=== PATIENT | female | born 1960 | race Caucasian/White ===

== ENCOUNTER 2019-04-28 10:33 | Emergency (ER) | payer MEDICARE, MEDICAID, SELFPAY ==
[2019-04-28 10:34] VITALS: BP 124/73; PULSE 65; RESP 18; TEMP 36.4; O2SAT 99; BMI 23.8
--- NOTE | 2019-04-28 10:41 | RAD_ITS ---
STUDY: X-RAY - RIGHT TIBIA AND FIBULA REASON FOR EXAM: Female, 58 years old. Right leg pain TECHNIQUE: 2 view(s) of the tibia and fibula were obtained. COMPARISON: None. FINDINGS: Normal visualized tibia. Normal visualized fibula. The soft tissue structures are unremarkable. RAD/Tibia & Fibula 2 Views IMPRESSION: Normal x-ray examination of the tibia and fibula. Electronically Signed: Brad Kyle DO at 11:19 EDT Tel , Service support ,
--- NOTE | 2019-04-28 10:49 | ED.DCSUM_ITS ---
- ER Visit Summary Date of Service: 04/28/19 Chief Complaint: Right moise injury History of Present Illness: The patient is a 58 F with history of developmental delay and seizure disorder presents to the emergency department after a right moise injury. Patient was at a workshop today. She was walking and slipped on a step. She struck her right moise against a stair. She fell to the ground. She did not strike her head. She denies loss of consciousness. She has still been able to bear weight, but had some swelling. She has not on anticoagulants. She denies any numbness or tingling in the foot. She is been compliant with all the medications. Physical Examination: Exam is relatively unremarkable. Patient does have a hematoma of the anterior distal aspect of the tibia. Her compartments are soft. Pulses are normal. She is neurologically intact in the foot. There is no gross laxity. There are no open areas. Test Results: [] Emergency Department Course and Treatment: Patient has no evidence of compart ment syndrome. X-rays were obtained. These show no evidence of acute fracture. Patient does have a contusion with small hematoma. She is placed in an [place] wrap. She will continue ice and elevation she will be discharged home. Treatment Plan: [] Disposition: Discharge Impression: 1. Right tibial hematoma This note was generated with [employer] dictation software. It may contain incorrect words, spelling, and punctuation that were not noted in review of the chart prior to signing ED Disposition - Plan for ED Patient: Instructions: ED Contusion Lower Ext Referrals: Mei Ruiz [Primary Care Provider] -
== END 2019-04-28 11:23 | disposition home or self-care (01) ==
LOC: ED 11:14
PROVIDERS: Emergency Provider Emergency Medicine
DX: S80.11XA Contusion of right lower leg, initial encounter (principal); G40.909 Epilepsy, unspecified, not intractable, without status epilepticus; R62.50 Unspecified lack of expected normal physiological development in childhood; Z79.899 Other long term (current) drug therapy; W22.09XA Striking against other stationary object, initial encounter; Y93.01 Activity, walking, marching and hiking; Y92.118 Other place in children's home and orphanage as the place of occurrence of the external cause; Y99.8 Other external cause status
CPT/HCPCS: 73590; 99282

== ENCOUNTER 2020-02-14 13:32 | Observation (INO) | payer MEDICARE, MEDICAID, SELFPAY ==
[2020-02-14 13:32] VITALS: BP 130/47; PULSE 85; RESP 14; TEMP 36.6; O2SAT 99; BMI 22.8
--- NOTE | 2020-02-14 14:11 | ED.VISSUMM ---
- ER Visit Summary Date of Service: 02/14/20 Chief Complaint: Leg weakness and fall History of Present Illness: The patient is a 59 F who presents with bilateral leg weakness that is been getting worse over the past couple days. Patient states she fell yesterday trying to get up off of the toilet. Patient states she has pain in both of her thighs. Patient admits to some weakness. Patient describes her pain as throbbing. Patient states nothing makes it better or worse. Patient denies any numbness or tingling. Patient denies any head injury or loss of consciousness. Patient denies any headaches. Physical Examination: Vital signs are stable. Patient is afebrile. Patient is in no acute distress. Oral mucosa is pink and moist. Neck is supple. Trachea is midline. There is no JVD. Heart was regular rate and rhythm. Lungs are clear and equal bilaterally. Abdomen is soft. Bowel sounds are normal. There is no tenderness. Cranial nerves II through XII are intact. Strength is 5/5 bilateral in the upper and lower extremities. There are no sensory deficits noted. Extremities are intact. There is no calf tenderness or edema. There is some mild tenderness over the thighs bilaterally. There is no edema noted. There is no erythema or ecchymosis. There are no deformities noted. Test Results: CBC and comprehensive metabolic profile were essentially within normal limits. Urinalysis does not show any evidence of urinary tract infection. PA and lateral chest x-ray was obtained. There is no acute cardiopulmonary process. Pelvic x-rays were obtained. There is no acute fracture. These were interpreted by the radiologist and myself. Emergency Department Course and Treatment: Patient was given IV fluids here. Patient was feeling better on reevaluation. Patient will be ambulated. Patient was unsteady with ambulating without her walker. This improved somewhat when she ambulated with a walker. Patient would prefer to go to a fdc. Patient would benefit from PT and OT to evaluate and treat. Patient was unable to be transferred directly to a fdc. Case was discussed with the hospitalist and the patient will be admitted for observation. Patient understood and was agreeable with the plan. All questions were answered. Disposition: Admit for observation Impression: 1. Lower extremity weakness 2. Frequent falls This note was generated with [employer] software. It may contain incorrect words, spelling, and punctuation that were not noted in review of the chart prior to signing ED Disposition - Plan for ED Patient: Disposition: Acute Care Hospital [facility] Diagnosis: Lower extremity weakness, Frequent falls Instructions: WEAKNESS, Unk Cause Referrals: Toby Young DO [Primary Care Provider] - 3-5 Days
[2020-02-14 14:24] LABS: Absolute Lymphocyte Count 1.02 X10^3/uL (0.83-4.51); Absolute Neutrophil Count 3.2 X10^3/uL (2.0-7.7); Basophil# 0.02 X10^3/uL; Basophil% 0.4 % (0-1); Eosinophil# 0.04 X10^3/uL; Eosinophils% 0.8 % (0-5); Hematocrit 39.6 % (37-47); Hemoglobin 12.6 g/dL (12.0-15.0); Lymphocyte # 1.02 X10^3/ul (4.0); Lymphocyte % 20.5 % (19-41); Mean Corp Hgb Conc 31.8 g/dL (32-36); Mean Corpuscular Hgb 30.9 pg (27.0-32.0); Mean Corpuscular Volume 97.1 fL (81-99); Mean Platelet Vol. 9.7 fl (6.2-12.0); Monocyte# 0.67 X10^3/uL; Monocyte% 13.5 % (0-10); NRBC Flagged by Analyzer 0 % (0-5); Neutrophil % 64.2 % (47-70); Platelet Count 130 K/mm3 (150-450); RBC Distribution Width CV 13.7 % (11.6-14.6); RBC Distribution Width SD 49.1 fl (35.1-43.9); Red Blood Count 4.08 M/mm3 (4.2-5.4)
[2020-02-14] MEDS: 0.9% Normal Saline 1,000 ML 1000 ML IV (14:31)
[2020-02-14 14:32] LABS: Bacteria 0 SEEN /hpf (None Seen); Mucous, Urine 0 SEEN /hpf (<or=2+); Red Blood Cells-Urine 0 SEEN /hpf (0-5)
[2020-02-14 14:34] LABS: Color, Urine Yellow (Yellow); Glucose, Dipstick Normal (Normal); Ketone-Dipstick 15 mg/dl (Negative); Leukocyte Esterase-Dipstick 25 /ul (Negative); Nitrite-Dipstick Negative (Negative); Occult Blood-Urine Negative /ul (Negative); Protein-Dipstick 30 mg/dl (Negative); Urine Clarity Clear (Clear); Urine Urobilinogen 1 mg/dl (Normal)
--- NOTE | 2020-02-14 14:36 | RAD_ITS ---
STUDY: X-RAY CHEST REASON FOR EXAM: Female, 59 years old. Weakness TECHNIQUE: PA and lateral views of the chest. COMPARISON: None. FINDINGS: Hyperinflation. Scattered calcified granulomas. There is no demonstrated pleural abnormality. Normal size heart. Normal mediastinum and jesús. Normal visualized pulmonary arteries. Normal visualized aortic arch and descending thoracic aorta. There is a mild dextroscoliosis of the thoracic spine with a levoscoliosis of the lumbar spine. Normal visualized ribs, clavicles, and shoulders. There is no demonstrated abnormality of the visualized soft tissue structures of the upper abdomen. RAD/Chest PA and Lateral IMPRESSION: Hyperinflation. The lungs are clear. Electronically Signed: Kirill Hager, at 14:51 EDT , Service support ,
--- NOTE | 2020-02-14 14:36 | RAD_ITS ---
STUDY: X-RAY - PELVIS REASON FOR EXAM: Female, 59 years old. Bilateral leg pain TECHNIQUE: One view of the pelvis was obtained. COMPARISON: None. FINDINGS: There is a non-specific bowel gas pattern. Normal visualized soft tissue structures. Normal bilateral iliac wings, sacroiliac joints and visualized sacrum. Normal visualized bilateral superior and inferior pubic rami. Normal pubic symphysis. Normal ischial tuberosities. Normal visualized right femoral head. Normal right acetabulum. Normal right hip joint. Normal visualized left femoral head. Normal left acetabulum. Normal left hip joint. RAD/Pelvis 1 or 2 Views IMPRESSION: Normal x-ray examination of the pelvis. Electronically Signed: Kirill Hager, at 14:50 EDT , Service support ,
[2020-02-14 14:45] LABS: ALB/GLOB Ratio 0.9 RATIO (0.9-2.4); AST(SGOT) 16 U/L (15-37); Alanine Aminotransfer ALT/SGPT 21 U/L (13-56); Albumin, Serum 3.1 g/dL (3.2-5.0); Alkaline Phosphatase 71 U/L (45-117); Anion Gap 6 (5-15); BUN 28 mg/dL (7-18); BUN/Creat Ratio 37.7 RATIO (10-20); Calcium,Total 8.4 mg/dL (8.5-10.1); Chloride 108 mmol/L (98-107); Creatinine, Serum 0.74 mg/dL (0.55-1.02); EST Glomerular Filtration Rate 85 mL/min (>60); Est Glom Filt Rate - Afr Amer 103 mL/min (>60); Estimated Creatinine Clearance 65.54 ml/min; Globulin 3.4 g/dL (2.2-4.2); Glucose 117 mg/dL (74-106); Potassium 3.4 mmol/L (3.5-5.1); Protein, Total 6.5 g/dL (6.4-8.2); Sodium Level 145 mmol/L (136-145)
[2020-02-14 14:46] LABS: Urine Bilirubin Dipstick 1 mg/dL (Negative); White Blood Cells 0-5 SEEN /hpf (0-5)
[2020-02-14 14:47] LABS: Hyaline Cast 0-5 SEEN /lpf (0-5); Squamous Epithelial Cells - UA 0-5 SEEN /hpf (5-10)
--- NOTE | 2020-02-14 15:08 | CM.ED ---
Social Work Consult: Discharge Planning Informant: Dr. Victoria Met with patient and patient [id number], Shantel in room. Patient currently lives with brother, Romeo and Shantel along with other family. Patient attends [employer] during the day on week days. Shantel stating to be able to care for patient as patient has been weak lately and is comfortable taking patient home. Shantel stating no concerns with patient returning to home and Shantel provides 24hr care for patient. Patient does not use any DME. Updated Dr. Victoria on above information. Anjelica Christian MSW, DOMINIQUE
--- NOTE | 2020-02-14 15:58 | CM.ED ---
Social Work Updated by nursing staff that patient is presenting with a significant amount of weakness and current recommendation, if Shantel plans for patient to return to home would be for patient to use a walker and have someone walking with patient at all times. Nursing staff reporting to have spoke with Shantel about this and plan is for patient to discharge to home with outpatient physical therapy. Met with patient and Shantel in room. This aids social worker inquiring as to where patient would like to go for physical therapy. Shantel now expressing concern with patient returning to home as I am not sure I can care for her per Shantel. Shantel and patient now asking about senior living placement with [facility] being first choice. This aids social worker educating patient and Shantel that this aids social worker is able to look into this option but no guarantee that patient will be accepted. Telephone call to [facility]. There are open beds and they are able to review clinicals. [facility] confirming to be willing to accept patient from the ER, as patient is not meeting criteria for medical admission but is meeting physical criteria for strengthening/therapy as patient prior level was independent per medical team. Clinical information faxed. Pending approval. Anjelica IVEY, DOMINIQUE
--- NOTE | 2020-02-14 16:20 | CM.ED ---
Addendum entered by Kelly Christian 02/14/20 20:00: Genet Farrar ([phone]) is patient caseworker protective services through board of . This bilingual social worker did attempt to contact Genet but Genet had already left for the day. Original Note: Social Work Patient with diagnosis of MR and receives services through the board of DD. Patient will trigger PASRR. Telephone call to Board of DD, Sara. Sara to have Felipa ([phone]) to call this bilingual social worker to see if patient would qualify for a categorical exemption. Anjelica IVEY, DOMINIQUE
[2020-02-14 16:41] VITALS: BP 124/57; PULSE 79; RESP 16; O2SAT 96
--- NOTE | 2020-02-14 16:50 | CM.ED ---
Social Work Telephone call from [facility]. They are able to accept patient under patient Medicaid which would require a PASRR that will be triggered for further assessment from the Department of Developmental Disabilities (CARL). Per Amber once the PASRR has been submitted it can take up to 24hrs for the CARL to look at the form. Amber recommending for the PASRR to be completed under emergency classification but the case will mostly still not be looked at until tomorrow. Collaborating with Dr. Perea. Plan is for patient to be brought into the hospital under observation as patient family is reporting to be unable to care for patient in the home. Anjelica Christian MSW, DOMINIQUE
--- NOTE | 2020-02-14 17:29 | NURSING ---
Kath PHILLIPS LOWER EXTREMITY WEAKNESS, FREQUENT FALLS OBS
[2020-02-14 17:31] VITALS: BP 122/59; PULSE 81; RESP 16; TEMP 36.2; O2SAT 97
--- NOTE | 2020-02-14 17:34 | PCM.HP.STD ---
History of Present Illness Date of Admission: 02/14/20 Chief Complaint: lower extremity weakness The patient is a 59 year old F who was in her normal state of health but over the past couple days is just been weak in her legs. Today which is weaker than normal and was sent to the emergency room. In the emergency room, patient underwent a work-up that was unremarkable. Try to get her up and patient was just too weak to do so. Decision was made to have patient go to a residential facility. They try to expedite that from the ER but were unable to do so with the patient being brought in under observation status to facilitate that process. Patient was accepted by [facility] but will need to have insurance approval before she can go. Patient denies any other complaints. Does have some chronic rhinitis but no change with that. She denies any travel nor any sick contacts that she is aware of. [] Past Medical History Medical History: Medical History (Last Updated 02/14/20 @ 17:[address] Jl Matos DO) Seizure disorder G40.909 Allergies No Known Allergies Allergy (Verified 02/14/20 13:35) Home Medications: Ambulatory Orders Medication Instructions Recorded Carbamazepine [Tegretol] 200 mg PO 5X/DAY 04/28/19 Clonazepam 1 mg PO QHS 04/28/19 Divalproex Sodium [Depakote] 1,000 mg PO BID 04/28/19 Levetiracetam [Keppra] 1,000 mg PO BID 04/28/19 Lives: Alone Smoking Status: Never smoker - *Family History Maternal History Items: - - no heart disease Review of Systems Comment: All review of systems were negative except as mentioned above in the history of present illness and the other review of systems. VTE Information - Inpt Only VTE Present on Admission: No VTE Mechan Device Prophylaxis: None VTE Pharm Prophylaxis ordered?: No Reason prophylaxis not ordered:: Treatment Not Indicated Patient Problems: Active and Suspected Problems (Last Updated 02/14/20 @ 17:[address] Jl Matos DO) Lower extremity weakness (Acute) Frequent falls (Acute) - Physical Exam Vitals/I&O's: Vital Signs Temp Pulse Resp BP Pulse Ox 36.2 C L 81 16 122/59 H 97 02/14/20 17:31 02/14/20 17:31 02/14/20 17:31 02/14/20 17:31 02/14/20 17:31 Oxygen Delivery Method Room Air Weight: 56.699 kg Body Mass Index (BMI) 22.8 Intake and Output for Last 24 Hours 02/12/20 02/13/20 02/14/20 23:59 23:59 23:59 Intake Total 1000 / 1000 Balance 1000 / 1000 General: Alert, No apparent distress HEENT: Atraumatic, Normocephalic Oral: Moist Mucosa, No Gingival or Mucosal Lesions/ Ulcerations Neck: No Nodes, Trachea Midline Lungs: Clear to auscultation, Normal air movement, No rhonchi, No wheeze Cardiovascular: Regular rate, Regular Rhythm, Normal S1, Normal S2, No murmurs Abdomen: Bowel Sounds Present, Soft, Non Tender, Non-Distended, No Hepato-splenomegaly Extremities: No edema, No Calf Tenderness Skin: No rashes, No breakdown Musculoskeletal: No Tenderness to Palpation of Joints or Extremities, No Muscle Wasting Psych/Mental Status: Normal Affect, Appropriate Laboratory Results 02/14/20 14:15: WBC 5.0, RBC 4.08 L, Hgb 12.6, Hct 39.6, MCV 97.1, MCH 30.9, MCHC 31.8 L, RDW Std Deviation 49.1 H, RDW Coeff of [place]ador 13.7, Plt Count 130 L, MPV 9.7, Immature Gran % (Auto) 0.600, Neut % (Auto) 64.2, Lymph % (Auto) 20.5, [place] % (Auto) 13.5 H, Eos % (Auto) 0.8, Baso % (Auto) 0.4, Absolute Neuts (auto) 3.2, Absolute Lymphs (auto) 1.02, Nucleated RBC % 0 02/14/20 14:15: Sodium 145, Potassium 3.4 L, Chloride 108 H, Carbon Dioxide 31.0, Anion Gap 6, BUN 28 H, Creatinine 0.74, Estim Creat Clear Calc 65.54, Est GFR (MDRD) Af Amer 103, Est GFR (MDRD) Non-Af 85, BUN/Creatinine Ratio 37.7 H, Glucose 117 H, Calcium 8.4 L, Total Bilirubin 0.20, AST 16, ALT 21, Alkaline Phosphatase 71, Total Protein 6.5, Albumin 3.1 L, Globulin 3.4, Albumin/Globulin Ratio 0.9 02/14/20 14:25: Urine Color Yellow, Urine Clarity Clear, Urine pH 5.0, Ur Specific [place] 1.020, Urine Protein 30 H, Urine Glucose (UA) Normal, Urine Ketones 15 H, Urine Occult Blood Negative, Urine Nitrite Negative, Urine Bilirubin 1 H, Urine Urobilinogen 1 H, Ur Leukocyte Esterase 25 H, Urine RBC 0 SEEN, Urine WBC 0-5 SEEN, Ur Squamous Epith Cells 0-5 SEEN, Urine Bacteria 0 SEEN, Hyaline Casts 0-5 SEEN, Urine Mucus 0 SEEN Assessment/Plan All Active Problems (Last Updated 02/14/20 @ 17:[address] Jl Matos, DO) Lower extremity weakness (Acute) Frequent falls (Acute) 1. debility: no clear etiology. plan for PT OT. casemgmt to assist with disposition. has already been accepted by [facility]. 2. Seizure disorder: Patient states that her last seizure was a few days ago but states that she gets them very infrequently. Continue with her home medications. 3. VTE prophylaxis: Low risk as patient is observation status and not indicated. 4. Advanced care planning. Patient is unsure. Therefore she will be full CODE STATUS at this time. OBSV E&M: 39225 Initial observation care L2
--- NOTE | 2020-02-14 17:50 | CM.ED ---
Social Work Telephone call from Felipa at the [facility] Board of DD. Felipa stating that the board CARL is only open during business hours and will not be reviewing patient triggered PASRR screen until tomorrow at the earliest. Felipa updated on patient and plan. Felipa voicing understanding and advising this community mental health social worker to initiate the PASRR at this time. PASRR completed and pending review from CARL in [place]. Social Work to continue to follow. Anjelica IVEY, DOMINIQUE
[2020-02-14 17:51] VITALS: BMI 23.6
[2020-02-14 18:01] VITALS: BP 128/60; PULSE 70; RESP 12; TEMP 36.6; O2SAT 98
[2020-02-14 18:14] VITALS: PULSE 80
[2020-02-14] MEDS: carBAMazepine 200 MG Tablet PO ×2 (18:44→21:19)
[2020-02-14 19:45] VITALS: BP 113/57; PULSE 78; RESP 16; TEMP 36.4; O2SAT 95
[2020-02-14] MEDS: clonazePAM 1 MG Tablet PO (21:19)
[2020-02-14] MEDS: levETIRAcetam 1,000 MG Tablet 1000 MG PO (21:19)
[2020-02-14] MEDS: Divalproex Sodium 250 MG Tablet 1000 MG PO (21:20)
[2020-02-15 02:16] VITALS: BP 113/58; PULSE 94; RESP 14; TEMP 36.9; O2SAT 95
[2020-02-15] MEDS: carBAMazepine 200 MG Tablet PO ×4 (05:19→17:45)
[2020-02-15] MEDS: Acetaminophen 325 MG Tablet 650 MG PO (07:28)
[2020-02-15] MEDS: levETIRAcetam 1,000 MG Tablet 1000 MG PO (09:33)
[2020-02-15] MEDS: Divalproex Sodium 250 MG Tablet 1000 MG PO (09:33)
--- NOTE | 2020-02-15 10:57 | CASEMGMT ---
Addendum entered by Willa Curry 02/15/20 16:06: SHANNAN placed a call to [facility] and spoke with Marisol. Marisol states she has received LOC for pt and will be reviewing LOC today and will likely have results for this worker today. Marisol asked for this worker's email address so she can mail the results. Email provided to Marisol. SHANNAN updated physician that this worker is still waiting for LOC results but is likely results will be received today. Plan: [facility] pending LOC Addendum entered by Willa Curry 02/15/20 11:48: SHANNAN spoke with Tara at [facility] and updated her that Board of DD has approved pt for 14 days. Tara states she will need LOC under medicaid. SHANNAN placed a call to Anjelica FOX, who states she hasn't submitted LOC yet so LOC will need to be submitted. SHANNAN completed LOC and faxed to [facility]. SHANNAN updated pt on approval for [facility] and likely discharge today. Original Note: Social Work Note SW received message from Genet Farrar at Board of DD stating pt has been approved by Board of DD to admission to SNF for 14 days. SHANNAN requested results be faxed to this worker, fax number provided. Genet states she would like updates sent to Board of DD and provided fax number [phone]. Genet also provided direct number [phone]. Willa Curry ICE CREAM MACHINE OPERATOR, COMMUNICATIONS SCIENTIST
[2020-02-15 10:58] VITALS: BP 103/51; PULSE 85; RESP 18; TEMP 36.9; O2SAT 94
--- NOTE | 2020-02-15 11:35 | PCM.TXEXTCAR ---
- Diet 02/14/20 18:05 Diet: Regular Diet Food consistency:: Regular Liquid Consistency:: Regular/Thin - Therapies Physical Therapy: Eval and Treat Occupational Therapy: Eval and Treat - Allergies/Procedures Done in Hospital Allergies/Adverse Reactions: Allergies No Known Allergies Allergy (Verified 02/14/20 13:35) Procedures: None - Type of Care/Length of Stay Estimated LOS: Convalescent Care Less Than 30 days Type of Care Needed: Skilled Rehab Potential: Good Prognosis: Good - Additional Orders/Day of Discharge Day of Discharge: 02/15/20 - Follow Up Care Please follow up with your Primary Care Physician in: 3-5 days
--- NOTE | 2020-02-15 12:49 | PCM.DC.SUM ---
Discharge Date and Diagnosis - Problem List Patient Problems: Active and Suspected Problems (Last Updated 02/14/20 @ 17:[address] Jl Matos DO) Lower extremity weakness (Acute) Frequent falls (Acute) Date of Admission: 02/14/20 Date of Discharge: 02/15/20 - Primary Discharge Diagnosis Active and Suspected Problems (Last Updated 02/14/20 @ 17:[address] Jl Matos DO) Lower extremity weakness (Acute) Frequent falls (Acute) Hospital Course and Treatment Imaging Results: CXR:IMPRESSION: Hyperinflation. The lungs are clear. XR Pelvis: IMPRESSION: Normal x-ray examination of the pelvis. Consults: None Operations: None Procedures: None Summary of Care Provided: Per HPI: The patient is a 59 year old F who was in her normal state of health but over the past couple days is just been weak in her legs. Today which is weaker than normal and was sent to the emergency room. In the emergency room, patient underwent a work-up that was unremarkable. Try to get her up and patient was just too weak to do so. Decision was made to have patient go to a custodial facility. They try to expedite that from the ER but were unable to do so with the patient being brought in under observation status to facilitate that process. Patient was accepted by [facility] but will need to have insurance approval before she can go. Patient denies any other complaints. Does have some chronic rhinitis but no change with that. She denies any travel nor any sick contacts that she is aware of Hospital Course: 1. Debility and weakness with an inability to complete [id number] female with a seizure disorder presents to the hospital because of weakness in her lower extremities. Work-up in the ER was unremarkable. There were attempts made in the ER to get her to a custodial facility however because she of her seizure disorder and intellectual disability, she needed to be cleared by the board of for transfer to a custodial facility. She will be transferred today to [facility] for therapy with the end goal of discharging back to home. 2. Her other medical diagnoses were evaluated and her home medications were continued where appropriate Patient Problems: Active and Suspected Problems (Last Updated 02/14/20 @ 17:[address] Jl Matos DO) Lower extremity weakness (Acute) Frequent falls (Acute) - Physical Exam Vitals/I&O's: Vital Signs Temp Pulse Resp BP Pulse Ox 98.5 F 85 18 103/51 L 94 02/15/20 10:58 02/15/20 10:58 02/15/20 10:58 02/15/20 10:58 02/15/20 10:58 Oxygen Delivery Method Room Air Weight: 129 lb 3.054 oz Body Mass Index (BMI) 23.6 Intake and Output for Last 24 Hours 02/13/20 02/14/20 02/15/20 23:59 23:59 23:59 Intake Total 1000 / 1000 500 / 500 Balance 1000 / 1000 500 / 500 General: Alert, Cooperative, No apparent distress HEENT: Atraumatic, PERRLA, EOMI, Normocephalic Oral: Moist Mucosa Neck: Supple, No JVD Lungs: Clear to auscultation, Normal air movement, No rhonchi, No wheeze, No rales Cardiovascular: Regular rate, Regular Rhythm, Normal S1, Normal S2, No murmurs Abdomen: Soft, Non Tender, Non-Distended, No Hepato-splenomegaly Extremities: No edema, Capillary Refill Less than 3 Seconds Skin: No rashes, No breakdown Neurological: Neuro grossly intact, Sensory exam intact to light touch and pain Psych/Mental Status: Normal Affect, Appropriate Laboratory Results 02/14/20 14:15: WBC 5.0, RBC 4.08 L, Hgb 12.6, Hct 39.6, MCV 97.1, MCH 30.9, MCHC 31.8 L, RDW Std Deviation 49.1 H, RDW Coeff of [place]ador 13.7, Plt Count 130 L, MPV 9.7, Immature Gran % (Auto) 0.600, Neut % (Auto) 64.2, Lymph % (Auto) 20.5, [place] % (Auto) 13.5 H, Eos % (Auto) 0.8, Baso % (Auto) 0.4, Absolute Neuts (auto) 3.2, Absolute Lymphs (auto) 1.02, Nucleated RBC % 0 02/14/20 14:15: Sodium 145, Potassium 3.4 L, Chloride 108 H, Carbon Dioxide 31.0, Anion Gap 6, BUN 28 H, Creatinine 0.74, Estim Creat Clear Calc 65.54, Est GFR (MDRD) Af Amer 103, Est GFR (MDRD) Non-Af 85, BUN/Creatinine Ratio 37.7 H, Glucose 117 H, Calcium 8.4 L, Total Bilirubin 0.20, AST 16, ALT 21, Alkaline Phosphatase 71, Total Protein 6.5, Albumin 3.1 L, Globulin 3.4, Albumin/Globulin Ratio 0.9 02/14/20 14:25: Urine Color Yellow, Urine Clarity Clear, Urine pH 5.0, Ur Specific [place] 1.020, Urine Protein 30 H, Urine Glucose (UA) Normal, Urine Ketones 15 H, Urine Occult Blood Negative, Urine Nitrite Negative, Urine Bilirubin 1 H, Urine Urobilinogen 1 H, Ur Leukocyte Esterase 25 H, Urine RBC 0 SEEN, Urine WBC 0-5 SEEN, Ur Squamous Epith Cells 0-5 SEEN, Urine Bacteria 0 SEEN, Hyaline Casts 0-5 SEEN, Urine Mucus 0 SEEN Current Medications Acetaminophen (Tylenol) 650 mg PO Q6H PRN PRN PRN Reason: Pain Score 1-10/Temp > 100.7 F Last Admin: 02/15/20 07:28 Dose: 650 mg Documented by: Carbamazepine (Tegretol) 200 mg PO 5X/DAY [facility] Last Admin: 02/15/20 09:33 Dose: 200 mg Documented by: Clonazepam (Klonopin) 1 mg PO QHS [facility] Last Admin: 02/14/20 21:19 Dose: 1 mg Documented by: Divalproex Sodium (Depakote) 1,000 mg PO BID [facility] Last Admin: 02/15/20 09:33 Dose: 1,000 mg Documented by: Glucagon () 1 mg IM .X1 PRN PRN Reason: Hypoglycemia Dextrose (Dextrose 10%-Water) 250 mls @ 999 mls/hr IV .Q16M PRN; Protocol PRN Reason: HYPOGLYCEMIA Levetiracetam (Keppra Tablet) 1,000 mg PO BID [facility] Last Admin: 02/15/20 09:33 Dose: 1,000 mg Documented by: Sodium Chloride () 10 - 40 ml IV UD PRN PRN Reason: SALINE FLUSH Home Medications: Medications to take at Discharge Carbamazepine [Tegretol] 200 mg PO 5X/DAY 04/28/19 Clonazepam 1 mg PO QHS 04/28/19 Divalproex Sodium [Depakote] 1,000 mg PO BID 04/28/19 Levetiracetam [Keppra] 1,000 mg PO BID 04/28/19 Please follow up with your Primary Care Physician in: 3-5 days Patient Instructions: WEAKNESS, Unk Cause Disposition: Nursing Home facility Minutes spent on discharge:: 35 Patient Condition:: Stable Medical Necessity - Tobacco Use Smoking Status: Never smoker Tobacco Use: Non-smoker Meaningful Use Info Meaningful Use Diagnoses (Choose all that apply): None applicable OBSV E&M: 59306 Observation care discharge
[2020-02-15 14:06] VITALS: BP 100/51; PULSE 85; RESP 18; TEMP 37.2; O2SAT 93
--- NOTE | 2020-02-15 16:33 | CASEMGMT ---
Social Work Note SHANNAN received LOC results from [facility]. SHANNAN faxed LOC results, Board of DD results, transfer to extended care facility, signed medication list and any scripts to [facility]. SHANNAN placed original in SNF folder and copy on pt's chart. SHANNAN placed a call to Lisa at [facility] and updated her that pt will be admitted to [facility]. SHANNAN asked Lisa if transportation is still available for pt and Lisa states their transport is done around 3:00pm. SHANNAN placed a call to pt's caregiver Shantel and updated Shantel that pt will be discharged to [facility] today. SHANNAN asked Shantel about transport. Shantel states she is sick and was told to not be around pt at this time so she will not be able to transport pt and was informed that the hospital could arrange transport. SHANNAN updated Shantel that pt could transport via wheelchair van but those are done for the day. SHANNAN informed Shantel that the other option is cot transport but pt doesn't have a medical reason she needs cot so pt will be financially responsible for bill for cot transport. Shantel states pt's brother Tommy is working until 8:00pm but may be able to transport pt once he gets off work. Shantel states she will call Tommy then give this worker a call back. SHANNAN received call from Shantel stating pt's brother Tommy is working until 8:00pm and then will be at [facility] to transport pt to [facility]. SHANNAN updated RN. SHANNAN placed a call to Lisa at [facility] and updated her on transport time. Plan: Discharge to [facility] under medicaid with pt's family transporting pt around 8:00pm [facility]. Willa Curry MANAGEMENT TECH, FAMILY NURSE
--- NOTE | 2020-02-15 18:19 | NURSING ---
Report called to [facility].
[2020-02-15 20:30] VITALS: BP 111/59; PULSE 79; RESP 16; TEMP 37.4; O2SAT 94
--- NOTE | 2020-02-15 20:33 | NURSING ---
Talked to Shantel Maher who is Doni's . Doni is the pt's brother that is to be picking her up and transporting her to [facility]. Mrs. Maher indicated that her did not get off work until around 1999 and would be here to pear picker pt around 2099.
== END 2020-02-15 21:30 | disposition skilled nursing facility (03) ==
LOC: ED 17:22 → MS3 17:38
PROVIDERS: Emergency Provider Emergency Medicine; Visit Provider Family Medicine
DX: R53.1 Weakness (principal); Z79.899 Other long term (current) drug therapy; R29.6 Repeated falls; G40.909 Epilepsy, unspecified, not intractable, without status epilepticus; Q85.00 Neurofibromatosis, unspecified
CPT/HCPCS: 71046; 72170; 80053; 81001; 85025; 96360; 97162; 97166; 99218; 99285; J7030; A4216; G0378

== ENCOUNTER 2021-09-24 12:46 | Emergency (ER) | payer MEDICARE, MEDICAID, SELFPAY ==
[2021-09-24 12:47] VITALS: BP 142/104; PULSE 78; RESP 18; TEMP 35.8; O2SAT 100; BMI 22.4
[2021-09-24 12:48] VITALS: BP 142/104; PULSE 78; RESP 18; TEMP 35.8; O2SAT 100
--- NOTE | 2021-09-24 12:59 | RAD_ITS ---
STUDY: X-RAY CHEST REASON FOR EXAM: Female, 61 years old. Cough TECHNIQUE: Single AP portable view of the chest. COMPARISON: Comparison is made with prior study 02/14/2020 FINDINGS: Hyperinflation. The lungs are clear. There is no demonstrated pleural abnormality. Normal size heart. Normal mediastinum and jesús. Normal visualized pulmonary arteries. Normal visualized aortic arch and descending thoracic aorta. Normal visualized thoracic spine. There is degenerative osteoarthritis of the bilateral shoulders. There is no demonstrated abnormality of the visualized soft tissue structures of the upper abdomen. RAD/Chest 1 View (Portable) IMPRESSION: Hyperinflation. The lungs are clear. Electronically Signed: Kirill Hager MD at 13:41 EDT , Service support ,
--- NOTE | 2021-09-24 13:00 | EDS_ITS ---
HPI HPI - URI History of Present Illness Chief Complaint: Cough Detail of Chief Complaint: Cough and fatigue that started today Informant: patient Narrative Narrative: Patient presents to the emergency department with caregiver. Patient goes to the [facility] workshop where she was noted to be coughing and caregiver was asked to pick her up and recommended that she get a Covid test. Patient states the cough is nonproductive. Patient has been vaccinated against Covid and has had her flu shot as well. She denies any fevers or chills or sweats. She denies shortness of breath. She denies body aches. She has not lost taste or smell. Prior similar symptoms: Yes ROS ROS ED ROS Narrative Fatigue Constitutional Constitutional ED: Reports systems reviewed and no addt'l complaints, except as documented; Denies body ache(s), change in weight or chills Eyes Eyes: Denies acute decrease in peripheral vision, change in vision, double vision or loss of vision ENT ENT ED: Reports none; Denies ear pain, lip swelling, loss taste/smell, neck pain, otalgia or sore throat Cardiovascular Cardiovascular: Reports none; Denies abdominal pain, chest pain with activity, leg edema, lightheadedness, palpitations, rapid heart rate or syncope Respiratory/Chest Respiratory/Chest: Reports none and cough; Denies change in mental status, dry cough, dyspnea, hemoptysis, shortness of breath at rest or shortness of breath with exertion Gastrointestinal Gastrointestinal: Reports none; Denies abdominal pain, change in stool hollie acter, diarrhea, hematemesis, hematochezia, melena, rectal bleeding or vomiting Genitourinary Genitourinary ED: Reports none; Denies abdominal discomfort, anuria, dysuria, genital pain or polyuria Musculoskeletal Musculoskeletal: Reports none; Denies arthralgias, back pain, difficulty walking, extremity pain, muscle weakness or myalgias Integumentary Reports none; Denies abscess or rash Neurologic Neurologic: Reports none; Denies abnormal gait, confusion, focal weakness, frequent falls, headache(s), loss of vision, numbness, paresthesias, radicular pain, vertigo or weakness Psychiatric Psychiatric: Reports systems reviewed and no addt'l complaints, except as documented and none; Denies behavioral changes, confusion, difficulty co ncentrating, hallucinations, suicidal ideation, tactile hallucinations or visual hallucinations Endocrine Endocrinology: Denies none, cold intolerance, excessive sweating, fatigue or heat intolerance Hematologic/Lymphatic Hematologic/Lymphatic: Reports none; Denies anemia, easy bleeding or easy bruising Allergic/Immunologic Allergic/Immunologic ED: Denies as per HPI, none, lip swelling, mouth swelling, throat swelling, tongue swelling or hives [facility] Medical History (Updated 09/24/21 @ 14:[address] Emma Wu, DO) Seizure disorder Home Medications carbamazepine 200 mg PO 5X/DAY 04/28/19 [History Last Taken 02/14/20] clonazepam 1 mg PO QHS 04/28/19 [History Last Taken 02/13/20] divalproex [Depakote] 1,000 mg PO BID 04/28/19 [History Last Taken 02/14/20] levetiracetam [Keppra] 1,000 mg PO BID 04/28/19 [History Last Taken 02/14/20] Allergy/AdvReac Type Severity Reaction Status Date / Time No Known Allergies Allergy Verified 09/24/21 12:48 Social History Smoking Status: Never smoker EXAM Physical Exam Const Vital Signs: 09/24/21 12:47 09/24/21 12:48 09/24/21 12:59 Temperature 96.5 F L 96.5 F L Temperature Source Temporal Temporal Pulse Rate 78 78 Respiratory Rate 18 18 Respiratory Effort Normal Non-Labored Respiratory Depth Normal Blood Pressure 142/104 H 142/104 H Blood Pressure Mean 116 116 Pulse Ox 100 100 Oxygen Delivery Method Room Air Room Air Positive well nourished and well developed General Appearance ED: well developed and NAD HEENT Reports TM's clear and moist mucous membranes normocephalic and atraumatic; Negative for trauma or tenderness Tympanic Membrane ED: Yes TM's clear Eyes PERRL and EOMs intact bilaterally General Eye ED: Negative for pale conjunctiva or scleral icterus Neck no lymphadenopathy, supple and no JVD General: Negative for tenderness Chest Wall inspection of chest normal and palpation of chest normal Chest: Negative for tenderness Resp normal respiratory effort and clear to auscultation bilaterally Effort and Inspection: Negative for respiratory distress or pain with movement Auscultation: Negative for rhonchi, wheezes or diminished lung sounds Cardio regular rate, regular rhythm, S1 normal heart sound, S2 normal heart sound and no murmurs Peripheral Pulses: pulses 2+ throughout GI normal to inspection, nondistended, normoactive bowel sounds, soft to palpation, non-tender, non-distended and no masses Back/Spine no CVA tenderness and no thoracic nor lumbar tenderness Extremity normal to inspection General Extremety ED: Negative for edema General Extremity: Negative for edema Neuro oriented x3, CN's II-XII intact bilaterally, no sensory deficits noted and gait normal Sensorium / Orientation: awake, alert, oriented to person, oriented to place and oriented to time Motor Exam: strength 5/5 throughout and strength abnormal Psych mental status grossly normal Skin no rashes or lesions noted and no wounds MDM MDM MDM Narrative Medical decision making narrative: Patient noted to have COVID-19. She will be discharged to home. They are advised to return if increased difficulty breathing or conditions worsen anyway. I do not feel patient would be criteria for antibody infusion and caregiver also states that she does not feel like the patient would want that. Lab Data Attestation: I reviewed the patient's lab results. Radiography Diagnostic Testing: Clinical Impression(s) from Imaging Studies Chest X-Ray 09/24/21 12:59 IMPRESSION: Hyperinflation. The lungs are clear. Electronically Signed: Kirill Hager MD at 13:41 EDT , Service support , Discharge Plan Triage Chief Complaint: Cough ED Provider: Emma Wu Dx/Rx/DC Orders Clinical Impression: COVID-19 Instructions: Caring for Someone Who Has COVID-19 Prescriptions: No Action clonazepam 1 MG tablet 1 mg PO QHS RF: 0 divalproex [Depakote] 500 MG Tablet.Dr 1,000 mg PO BID RF: 0 carbamazepine 200 MG tablet 200 mg PO 5X/DAY RF: 0 levetiracetam [Keppra] 1,000 MG tablet 1,000 mg PO BID RF: 0 Primary Care Provider: Toby Young Referrals: Toby Young DO [Primary Care Provider] - As Needed Disposition Disposition: Home, Self Care
[2021-09-24 14:18] VITALS: BP 130/70; PULSE 84; RESP 20; O2SAT 96
--- NOTE | 2021-09-24 14:18 | ED.RN ---
THIS NURSE REVIEWED D/C INSTRUCTIONS WITH PT AND VISITOR. BOTH VERBALIZED UNDERSTANDING OF INSTRUCTIONS. PT DENIES FURTHER NEEDS OR QUESTIONS AT THIS TIME. PT AMBULATES FROM ROOM ON OWN WITHOUT ASSISTANCE FROM STAFF
== END 2021-09-24 14:19 | disposition home or self-care (01) ==
PROVIDERS: Emergency Provider Emergency Medicine
DX: U07.1 COVID-19 (principal); G40.909 Epilepsy, unspecified, not intractable, without status epilepticus; Z79.899 Other long term (current) drug therapy
CPT/HCPCS: 71045; 87426; 99282

== ENCOUNTER 2022-04-17 14:37 | Emergency (ER) | payer MEDICARE, MEDICAID, SELFPAY ==
[2022-04-17 14:38] VITALS: BP 134/71; PULSE 81; RESP 16; TEMP 36; O2SAT 100; BMI 23.8
--- NOTE | 2022-04-17 15:15 | RAD_ITS ---
STUDY: X-RAY - RIGHT KNEE REASON FOR EXAM: Female, 61 years old. Pain following a fall. TECHNIQUE: view(s) of the knee. COMPARISON: None. FINDINGS: Normal visualized distal femur. Normal visualized proximal tibia and fibula. Normal proximal tibiofibular articulation. There is mild degenerative arthrosis of the medial femorotibial compartment. Normal lateral femorotibial compartment. Normal patellofemoral articulation. Prepatellar soft tissue swelling. RAD/Knee 4 or More Views IMPRESSION: Degenerative arthrosis. Prepatellar soft tissue swelling. Electronically Signed: Kirill Hager MD at 15:43 EDT ,
--- NOTE | 2022-04-17 15:41 | ED.VIS.LOWEX ---
HPI History of Present Illness Chief Complaint: Lower Extremity Injury Narrative Narrative: 7-year-old female presenting with right knee pain. She states she had mechanical fall at her workshop today after trying to stack some cardboard. She landed on her right knee. She is ambulatory on scene in the ER. She took nothing for pain prior to arrival. Denies hitting her head. She has no other injuries. [facility] Medical History Seizure disorder Home Medications carbamazepine 200 mg PO 5X/DAY 04/28/19 [History Last Taken 02/14/20] clonazepam 1 mg PO QHS 04/28/19 [History Last Taken 02/13/20] divalproex [Depakote] 1,000 mg PO BID 04/28/19 [History Last Taken 02/14/20] levetiracetam [Keppra] 1,000 mg PO BID 04/28/19 [History Last Taken 02/14/20] Allergy/AdvReac Type Severity Reaction Status Date / Time No Known Allergies Allergy Verified 09/24/21 12:48 Social History Smoking Status: Never smoker ROS ROS ED Constitutional Constitutional ED: Denies chills, fever(s) or sweats Eyes Eyes: Denies blurry vision or change in vision ENT ENT ED: Denies ear pain or sore throat Cardiovascular Cardiovascular: Denies chest pain, palpitations or racing heartbeat Respiratory/Chest Respiratory/Chest: Denies cough, dyspnea or sputum Gastrointestinal Gastrointestinal: Denies abdominal pain, constipation, diarrhea, nausea or vomiting Genitourinary Genitourinary ED: Denies dysuria, hematuria or urinary frequency Musculoskeletal Musculoskeletal: Denies arthralgias, myalgias or neck pain Integumentary Reports other Details: Bruising over the right patella. Swelling of the right patella Neurologic Neurologic: Denies headache(s), paresthesias or weakness Psychiatric Psychiatric: Denies anxiety, depression, suicidal ideation or suicidal thoughts Endocrine Endocrinology: Denies polydipsia or polyuria EXAM Physical Exam Const Vital Signs: 04/17/22 14:38 Temperature 96.8 F L Temperature Source Temporal Pulse Rate 81 Respiratory Rate 16 Blood Pressure 134/71 H Blood Pressure Mean 92 Pulse Ox 100 Oxygen Delivery Method Room Air Positive well nourished General Appearance ED: NAD HEENT Reports moist mucous membranes normocephalic and atraumatic Resp normal respiratory effort and clear to auscultation bilaterally Cardio regular rate and regular rhythm Extremity Extremity Narrative: Tenderness palpation of right patella. Medial lateral joint line no tenderness to palpation. Extensor mechanism is intact in the right patella. There is central bruising and swelling over the right patella. Neuro oriented x3 Sensorium / Orientation: alert Psych mental status grossly normal Skin Skin Narrative: As described above MDM MDM MDM Narrative Medical decision making narrative: Patient presenting with right knee pain. She has bruising and swelling. He is given ice pack and ibuprofen. X-ray obtained of the right knee on my interpretation shows no acute fracture or subluxation. Patient counseled she has a knee contusion. She is to alternate Tylenol and ibuprofen as well as ice. She does not require any crutches. I did inform her to use compression on the right knee. Impression: 1. Mechanical fall 2. Right knee contusion Radiography Diagnostic Testing: Clinical Impression(s) from Imaging Studies Knee X-Ray 04/17/22 15:15 IMPRESSION: Degenerative arthrosis. Prepatellar soft tissue swelling. Electronically Signed: Kirill Hager MD at 15:43 EDT , Discharge Plan Triage Chief Complaint: Lower Extremity Injury ED Provider: Eugenio Kendrick Dx/Rx/DC Orders Instructions: ED Contusion, Lower Extremity, ED Fall Prevention Prescriptions: No Action clonazepam 1 MG tablet 1 mg PO QHS RF: 0 divalproex [Depakote] 500 MG tablet,delayed release (DR/EC) 1,000 mg PO BID RF: 0 carbamazepine 200 MG tablet 200 mg PO 5X/DAY RF: 0 levetiracetam [Keppra] 1,000 MG tablet 1,000 mg PO BID RF: 0 Primary Care Provider: Care Physician,No Primary Referrals: Care Physician,No Primary [Primary Care Provider] - Disposition Disposition: Home, Self Care
[2022-04-17] MEDS: Ibuprofen 600 MG Tablet PO (15:57)
== END 2022-04-17 16:12 | disposition home or self-care (01) ==
PROVIDERS: Emergency Provider Student in an Organized Health Care Education/Training Program; Visit Provider Student in an Organized Health Care Education/Training Program
DX: S80.01XA Contusion of right knee, initial encounter (principal); G40.909 Epilepsy, unspecified, not intractable, without status epilepticus; W19.XXXA Unspecified fall, initial encounter; Z79.899 Other long term (current) drug therapy
CPT/HCPCS: 73564; 99283

== ENCOUNTER 2022-07-17 13:40 | Emergency (ER) | payer MEDICARE, MEDICAID, SELFPAY ==
[2022-07-17 13:41] VITALS: BP 141/69; PULSE 72; RESP 16; TEMP 36.2; O2SAT 100; BMI 24.0
--- NOTE | 2022-07-17 14:45 | EX.ED.DYSGE1 ---
HPI History of Present Illness Chief Complaint: Fever Detail of Chief Complaint: Fever cough, runny nose Informant: patient and family Narrative Narrative: Patient presents to the emergency department with complaint of a low-grade fever today as well as a cough and runny nose. History comes from patient's family member who is with her. Apparently at the workshop where patient goes there have been several cases of COVID-19. Patient does have her COVID-vaccine. She denies any chest pain or shortness of breath. She denies headache or body aches. Patient has history of neurofibromatosis and history of seizure disorder. Prior similar symptoms: No PFSH PFS Medical History Seizure disorder Home Medications carbamazepine 200 mg tablet 200 mg PO 5X/DAY seizure 04/28/19 [History Last Taken 02/14/20] clonazepam 1 mg tablet 1 mg PO QHS anxiety 04/28/19 [History Last Taken 02/13/20] divalproex 500 mg tablet,delayed release (Depakote) 1,000 mg PO BID seizure 04/28/19 [History Last Taken 02/14/20] levetiracetam 1,000 mg tablet (Keppra) 1,000 mg PO BID seizure 04/28/19 [History Last Taken 02/14/20] Allergy/AdvReac Type Severity Reaction Status Date / Time No Known Allergies Allergy Verified 07/17/22 13:41 Social History Smoking Status: Never smoker ROS ROS ED Review of Systems ROS Unobtainable: other Constitutional Constitutional ED: Reports fever(s) and lethargy; Denies chills, sweats or weight loss Eyes Eyes: Denies blurry vision, change in vision or diplopia ENT ENT ED: Reports rhinorrhea; Denies sore throat Cardiovascular Cardiovascular: Denies chest pain, orthopnea or racing heartbeat Respiratory/Chest Respiratory/Chest: Reports cough, dyspnea and dyspnea on exertion; Denies orthopnea or sputum Gastrointestinal Gastrointestinal: Denies abdominal pain, diarrhea, nausea or vomiting Genitourinary Genitourinary ED: Denies dysuria, hematuria or urinary frequency Musculoskeletal Musculoskeletal: Denies arthralgias, back pain, myalgias or neck pain Integumentary Denies abscess, Abrasions or rash Neurologic Neurologic: Denies headache(s) or weakness Psychiatric Psychiatric: Denies anxiety, depression or suicidal thoughts Endocrine Endocrinology: Denies polydipsia, polyphagia or polyuria Hematologic/Lymphatic Hematologic/Lymphatic: Denies easy bleeding, easy bruising or lymphadenopathy Allergic/Immunologic Allergic/Immunologic ED: Denies mouth swelling, tongue swelling or urticaria EXAM Physical Exam Const Vital Signs: 07/17/22 13:41 07/17/22 15:03 07/17/22 15:06 Temperature 97.2 F L Temperature Source Temporal Pulse Rate 72 64 Respiratory Rate 16 16 Respiratory Effort Normal Blood Pressure 141/69 H 134/64 H Blood Pressure Mean 93 87 Pulse Ox 100 98 Oxygen Delivery Method Room Air Room Air Positive well nourished and well developed General Appearance ED: well developed and NAD HEENT Reports TM's clear and moist mucous membranes normocephalic and atraumatic; Negative for trauma or tenderness Tympanic Membrane ED: Yes TM's clear Eyes PERRL and EOMs intact bilaterally General Eye ED: Negative for pale conjunctiva or scleral icterus Neck no lymphadenopathy, supple and no JVD General: Negative for tenderness Chest Wall inspection of chest normal and palpation of chest normal Chest: Negative for tenderness Resp normal respiratory effort and clear to auscultation bilaterally Effort and Inspection: Negative for respiratory distress or pain with movement Auscultation: Negative for rhonchi, wheezes or diminished lung sounds Cardio regular rate, regular rhythm, S1 normal heart sound, S2 normal heart sound and no murmurs Peripheral Pulses: pulses 2+ throughout GI normal to inspection, nondistended, normoactive bowel sounds, soft to palpation, non-tender, non-distended and no masses Back/Spine no CVA tenderness and no thoracic nor lumbar tenderness Extremity normal to inspection General Extremety ED: Negative for edema General Extremity: Negative for edema Neuro oriented x3, CN's II-XII intact bilaterally, no sensory deficits noted and gait normal Sensorium / Orientation: awake, alert, oriented to person, oriented to place and oriented to time Motor Exam: strength 5/5 throughout and strength abnormal Psych mental status grossly normal Skin no rashes or lesions noted and no wounds MDM MDM MDM Narrative Medical decision making narrative: Patient had flu and COVID rapid screen that were both negative. At this point suspect she has a viral URI. I advised that they repeat a COVID test in 2 days. They understand that it can take 2 to 3 days for the COVID test to turn positive. Patient vies return if increasing shortness of breath or condition should worsen anyway. Lab Data Attestation: I reviewed the patient's lab results. Discharge Plan Triage Chief Complaint: Fever ED Provider: Emma Wu Dx/Rx/DC Orders Clinical Impression: Viral URI Instructions: ED URI, Viral, No Abx (Adult) Prescriptions: No Action clonazepam 1 MG tablet 1 mg PO QHS divalproex [Depakote] 500 MG tablet,delayed release (DR/EC) 1,000 mg PO BID carbamazepine 200 MG tablet 200 mg PO 5X/DAY levetiracetam [Keppra] 1,000 MG tablet 1,000 mg PO BID Primary Care Provider: Dmitry Wiley Referrals: Dmitry Wiely, [Primary Care Provider] - 3-5 Days Activity Restrictions/Additional Instructions: Repeat COVID 19 home test in 2 days. Disposition Disposition: Home, Self Care
[2022-07-17 15:03] VITALS: BP 134/64; PULSE 64; RESP 16; O2SAT 98
== END 2022-07-17 16:00 | disposition home or self-care (01) ==
PROVIDERS: Emergency Provider Emergency Medicine; PCP Family Medicine; Visit Provider Emergency Medicine
DX: J06.9 Acute upper respiratory infection, unspecified (principal); G40.909 Epilepsy, unspecified, not intractable, without status epilepticus; Z20.822 Contact with and (suspected) exposure to COVID-19
CPT/HCPCS: 87428; 99282

== ENCOUNTER 2023-06-30 10:27 | Emergency (ER) | payer MEDICARE, MEDICAID, SELFPAY ==
[2023-06-30 10:29] VITALS: BP 118/57; PULSE 83; RESP 14; TEMP 36.1; O2SAT 100; BMI 23.0
--- NOTE | 2023-06-30 10:55 | EX.ED.VIS.HA ---
HPI History of Present Illness Chief Complaint: Headache Informant: patient and family Onset/Context/Timing Onset: Today Context: Sudden Timing: Continuous Quality -Headache: Positive for Dull Location: Right frontal area Worsened by: Nothing Relieved by: Nothing Associated Symptoms/Injury Associated Symptoms: Negative for Fever, Nausea, Vomiting, Sore Throat, Sinus Pressure, Numbness, Tingling, Preceding Aura, Visual Changes, Blurred Vision, Photophobia or Visual Loss Narrative Narrative: Patient presents with a headache that began today. Family states the patient was having difficulty ambulating. Family states she was walking like she was drunk. Patient states her headache is over the right frontal area. Family states patient fell 3 weeks ago and had sutures placed above her right eyebrow at that time. Family states patient has not had any headaches since the injury. Patient denies any nausea or vomiting. Patient describes her pain as mild and dull currently. Patient denies any photophobia. Patient denies any nausea or vomiting. [facility] Medical History Neurofibroma Seizure disorder Home Medications carbamazepine 200 mg tablet 200 mg PO 5X/DAY seizure 04/28/19 [History Last Taken 02/14/20] clonazepam 1 mg tablet 1 mg PO QHS anxiety 04/28/19 [History Last Taken 02/13/20] divalproex 500 mg tablet,delayed release (Depakote) 1,000 mg PO BID seizure 04/28/19 [History Last Taken 02/14/20] levetiracetam 1,000 mg tablet (Keppra) 1,000 mg PO BID seizure 04/28/19 [History Last Taken 02/14/20] Allergy/AdvReac Type Severity Reaction Status Date / Time No Known Allergies Allergy Verified 06/30/23 10:29 Surgical History no surgical history no surgical history Social History Smoking Status: Never smoker ROS ROS ED Constitutional Constitutional ED: Denies chills or fever(s) Eyes Eyes: Denies blurry vision or change in vision ENT ENT ED: Denies rhinorrhea or sore throat Cardiovascular Cardiovascular: Denies chest pain or palpitations Respiratory/Chest Respiratory/Chest: Denies cough or dyspnea Gastrointestinal Gastrointestinal: Denies nausea or vomiting Genitourinary Genitourinary ED: Denies dysuria or hematuria Musculoskeletal Musculoskeletal: Denies back pain or neck pain Integumentary Denies abscess or rash Neurologic Neurologic: Reports headache(s); Denies weakness Allergic/Immunologic Allergic/Immunologic ED: Denies mouth swelling or urticaria EXAM Physical Exam Const Vital Signs: 06/30/23 10:29 06/30/23 12:24 06/30/23 13:31 Temperature 97 F L Temperature Source Temporal Pulse Rate 83 80 82 Respiratory Rate 14 11 L 12 Blood Pressure 118/57 L 149/70 H 134/65 H Blood Pressure Mean 77 96 88 Pulse Ox 100 99 99 Oxygen Delivery Method Room Air Room Air 06/30/23 14:03 Temperature Temperature Source Pulse Rate 83 Respiratory Rate 16 Blood Pressure 125/74 H Blood Pressure Mean 91 Pulse Ox 97 Oxygen Delivery Method Room Air Positive well nourished and well developed General Appearance ED: well developed HEENT Reports moist mucous membranes Neck supple and no JVD Resp normal respiratory effort and clear to auscultation bilaterally Cardio regular rate, regular rhythm and no murmurs GI normal to inspection, nondistended, normoactive bowel sounds and non-tender Palpation: soft Extremity normal to inspection General Extremety ED: Negative for edema or tenderness General Extremity: Negative for edema Neuro oriented x3, CN's II-XII intact bilaterally and no sensory deficits noted Sensorium / Orientation: alert Motor Exam: strength 5/5 throughout Psych mental status grossly normal Skin no rashes or lesions noted MDM MDM MDM Narrative Medical decision making narrative: Differential diagnosis includes intracranial bleeding, migraine headache, tension headache, and concussion. CT scan of the brain will be obtained to assess for intracranial bleeding. Lab Data Attestation: I reviewed the patient's lab results. Lab results narrative: CBC was reviewed and showed a slight leukocytosis of 11.1. Platelets were normal. Basic metabolic profile was reviewed and was within normal limits. Valproic acid level was reviewed and was normal at 99. Labs: Laboratory Results - last 24 hr 06/30/23 11:13 WBC 11.1 H RBC 4.28 Hgb 12.9 Hct 40.2 MCV 93.9 MCH 30.1 MCHC 32.1 RDW Std Deviation 48.2 H RDW Coeff of [place] 14.0 Plt Count 183 MPV 9.8 Immature Gran % (Auto) 0.600 Neut % (Auto) 62.6 Lymph % (Auto) 17.3 L [place] % (Auto) 18.8 H Eos % (Auto) 0.2 Baso % (Auto) 0.5 Absolute Neuts (auto) 7.0 Absolute Lymphs (auto) 1.92 Nucleated RBC % 0 Differential Comment SCANNED Diff Path Review March Sodium 136 Potassium 4.0 Chloride 103 Carbon Dioxide 28.0 Anion Gap 5 BUN 18 Creatinine 0.69 Estim Creat Clear Calc 66.86 Est GFR (MDRD) Af Amer 111 Est GFR (MDRD) Non-Af 92 BUN/Creatinine Ratio 26.2 H Glucose 106 Calcium 9.0 Valproic Acid 99 Radiography Diagnostic Testing: Clinical Impression(s) from Imaging Studies Brain CT 06/30/23 11:25 IMPRESSION: Acute on chronic right subdural hematoma overlying the right frontoparietal lobes with a shift of the midline from right to left measuring 5.1 mm. N.B. : The above Results were Read Back by Kirill Hager MD to Jl Victoria DO, and understanding confirmed on 06/30/2023 12:05:29 (ET). Electronically Signed: Kirill Hager MD at 12:06 EDT , ADDENDUM: 06/30/23 1213 IMPRESSION: Acute on chronic right subdural hematoma overlying the right frontoparietal lobes with a shift of the midline from right to left measuring 5.1 mm. N.B. : The above Results were Read Back by Kirill Hager MD to Jl Victoria DO, and understanding confirmed on 06/30/2023 12:05:29 (ET). Electronically Signed: Kirill Hager MD at 12:06 EDT , CT scan of the brain was obtained. There is an acute on chronic right subdural hematoma overlying the right frontal parietal lobes with midline shift of approximately 5.1 mm. This was interpreted by the radiologist and was also independently reviewed by myself. Treatment and Re-Evaluation Narrative: Patient and family were advised of the findings. They were advised of the need for transfer to trauma center for further evaluation and monitoring. Case was discussed with Dr. Grover at [facility]. Patient will be transferred to the ICU there. Family understood and was agreeable with the plan. All questions were answered. Critical Care Time Critical Care Time: Yes Critical care time (excluding procedures): 30-74 minutes (33), Including time spent:, Discussing w/Patient &/or Family/Industrial Management Teacher, Discussing w/Consultants, Arranging Admission or Transfer and Performing Direct Patient Care at Bedside Discharge Plan Triage Chief Complaint: Headache Other Complaint: Dizziness ED Provider: Jl Victoria Dx/Rx/DC Orders Clinical Impression: Headache, Subdural hematoma Prescriptions: No Action clonazepam 1 MG tablet 1 mg PO QHS divalproex [Depakote] 500 MG tablet,delayed release (DR/EC) 1,000 mg PO BID carbamazepine 200 MG tablet 200 mg PO 5X/DAY levetiracetam [Keppra] 1,000 MG tablet 1,000 mg PO BID Primary Care Provider: Dmitry Wiley Referrals: Dmitry Wiley, [Primary Care Provider] - Disposition Disposition: Acute Care Hospital Discharge Location: [facility] Discharge Date/Time: 06/30/23 14:13
[2023-06-30] MEDS: 0.9% Normal Saline 1,000 ML 999 ML IV (11:15)
[2023-06-30 11:23] LABS: Absolute Lymphocyte Count 1.92 X10^3/uL (0.83-4.51); Basophil# 0.05 X10^3/uL; Basophil% 0.5 % (0-1); Eosinophil# 0.02 X10^3/uL; Eosinophils% 0.2 % (0-5); Hematocrit 40.2 % (37-47); Hemoglobin 12.9 g/dL (12.0-15.0); Lymphocyte # 1.92 X10^3/ul (0.83-4.51); Lymphocyte % 17.3 % (19-41); Mean Corp Hgb Conc 32.1 g/dL (32-36); Mean Corpuscular Hgb 30.1 pg (27.0-32.0); Mean Corpuscular Volume 93.9 fL (81-99); Mean Platelet Vol. 9.8 fl (6.2-12.0); Monocyte# 2.09 X10^3/uL; Monocyte% 18.8 % (0-10); NRBC Flagged by Analyzer 0 % (0-5); Neutrophil # 6.95 X10^3/uL (2.7-7.7); Neutrophil % 62.6 % (47-70); POSITIVE DIFFERENTIAL YES; Platelet Count 183 K/mm3 (150-450); RBC Distribution Width SD 48.2 fl (35.1-43.9); Red Blood Count 4.28 M/mm3 (4.2-5.4); White Blood Count 11.1 K/mm3 (4.4-11.0)
[2023-06-30 11:25] LABS: Differential Indicated SCAN CRITERIA MET
--- NOTE | 2023-06-30 11:25 | CT_ITS ---
STUDY: CT BRAIN WITHOUT CONTRAST REASON FOR EXAM: Female, 63 years old. Head injury. RADIATION DOSAGE (If Supplied By Facility): CTDIvol = ( 44.99 ) mGy, DLP = ( 846.73 ) mGycm TECHNIQUE: Transaxial CT imaging of the brain was performed without administration of intravenous contrast material. Individualized dose optimization techniques were used for this CT. COMPARISON: No relevant priors. FINDINGS: Normal soft tissue structures. Normal calvarium. There is mild cerebral atrophy with widening of the extra-axial spaces and ventricular dilatation. There is evidence of a [id number] sized right acute on chronic subdural hematoma overlying the right frontoparietal lobes. There is a shift of the midline from right to left of 5.1 mm. Normal basal ganglia and thalami. Normal brainstem. Normal cerebellum. There is no intracranial hemorrhage. There are no findings of an acute ischemic infarction. Atherosclerotic calcification of the cavernous portions of the internal carotid arteries bilaterally. Normal visualized paranasal sinuses. CT/Brain/Head without Contrast IMPRESSION: Acute on chronic right subdural hematoma overlying the right frontoparietal lobes with a shift of the midline from right to left measuring 5.1 mm. N.B. : The above Results were Read Back by Kirill Hager MD to Jl Victoria DO, and understanding confirmed on 06/30/2023 12:05:29 (ET). Electronically Signed: Kirill Hager MD at 12:06 EDT ,
[2023-06-30 11:39] LABS: Differential Comment SCANNED
[2023-06-30 11:47] LABS: Anion Gap 5 (5-15); BUN 18 mg/dL (7-18); BUN/Creat Ratio 26.2 RATIO (10-20); Chloride 103 mmol/L (98-107); Creatinine, Serum 0.69 mg/dL (0.55-1.02); EST Glomerular Filtration Rate 92 mL/min (>60); Est Glom Filt Rate - Afr Amer 111 mL/min (>60); Estimated Creatinine Clearance 66.86 ml/min; Glucose 106 mg/dL (74-106); Sodium Level 136 mmol/L (136-145)
[2023-06-30 12:08] LABS: Valproic Acid (Depakene) Level 99 ug/mL (50-100)
[2023-06-30 12:24] VITALS: BP 149/70; PULSE 80; RESP 11; O2SAT 99
--- NOTE | 2023-06-30 13:30 | ED.RN ---
THIS RN CALLED REPORT TO [facility] AT 1325. REPORT GIVEN TO SILVIA SMILEY ON UNIT T2 BED 25.
[2023-06-30 13:31] VITALS: BP 134/65; PULSE 82; RESP 12; O2SAT 99
[2023-06-30 14:03] VITALS: BP 125/74; PULSE 83; RESP 16; O2SAT 97
--- NOTE | 2023-06-30 14:03 | ED.RN ---
REPORT GIVEN TO [facility] WITH [facility]. IV INTACT/ PATENT/ SALINE LOCKED. PT DENIES ANY PAIN A &O X3.
--- NOTE | 2023-06-30 14:08 | ED.RN ---
PT AND PT SISTER IN LAW CONCERNED PT NEEDS TO RECEIVE NIGHT TIME MEDICATIONS AT [facility]. THIS RN CALLED [facility] AT 1408 AND SPOKE TO SILVIA SMILEY. ABOUT NIGHT TIME MEDICATIONS. PT SISTER IN LAW STATES SHE TAKES DEPAKOTE, KEPPRA, AND CLONAZEPAM AT HOME AND THAT THEY SHOULD HAVE INFORMATION ON HER CHART AT [place]. SILVIA SMILEY. TO CHECK WITH PHYSICIAN ON ORDERING MEDICATIONS ON PT ARRIVAL. BALJIT VEGA. UPDATED ON PT DEPARTURE FROM [facility].
[2023-07-01 13:05] LABS: Pathologist Review Reviewed
== END 2023-06-30 14:13 | disposition short-term general hospital (02) ==
PROVIDERS: Emergency Provider Emergency Medicine; PCP Family Medicine; Visit Provider Emergency Medicine
DX: I62.00 Nontraumatic subdural hemorrhage, unspecified (principal); G40.909 Epilepsy, unspecified, not intractable, without status epilepticus; Z79.899 Other long term (current) drug therapy
CPT/HCPCS: 70450; 80048; 80164; 85025; 96360; 96361; 99284; J7030; A4216

== ENCOUNTER 2023-09-25 10:25 | Inpatient (IN) | payer MEDICARE, MEDICAID, SELFPAY ==
[2023-09-25] VITALS (15 sets, daily range): BP systolic 99–146; BP diastolic 47–74; PULSE 13–69; RESP 12–67; TEMP 35.9–36.3; O2SAT 97–100; BMI 22.4; BMI 21.6
--- NOTE | 2023-09-25 10:26 | RAD_ITS ---
STUDY: X-RAY CHEST REASON FOR EXAM: Female, 63 years old. Neuro deficit, acute, stroke suspected TECHNIQUE: Single AP portable view of the chest. COMPARISON: Comparison is made with prior study dated September 24, 2021. FINDINGS: EKG electrodes are seen. The lungs are clear and expanded. There is no demonstrated pleural abnormality. Normal size heart. Normal mediastinum and jesús. Normal visualized pulmonary arteries. Normal visualized aortic arch and descending thoracic aorta. There are mild degenerative changes of the visualized thoracic spine. Normal visualized ribs, clavicles, and shoulders. There is no demonstrated abnormality of the visualized soft tissue structures of the upper abdomen. RAD/Chest 1 View IMPRESSION: Normal x-ray examination of the chest. Electronically Signed: Kirill Hager MD at 11:13 EDT ,
--- NOTE | 2023-09-25 10:26 | CT_ITS ---
STUDY: CT HEAD STROKE PROTOCOL W/O CONTRAST INJECTION REASON FOR EXAM: Female, 63 years old. Neuro deficit, acute, stroke suspected -- Patient is falling to the left RADIATION DOSAGE (If Supplied By Facility): CTDIvol = ( 44.99 ) mGy, DLP = ( 812.98 ) mGycm TECHNIQUE: Transaxial CT imaging of the brain was performed without administration of intravenous contrast material. Individualized dose optimization techniques were used for this CT. COMPARISON: Comparison is made with prior study dated June 30, 2023. FINDINGS: Normal soft tissue structures. Normal calvarium. There is moderate cerebral atrophy with widening of the extra-axial spaces and ventricular dilatation. The previously seen acute on chronic right subdural hematoma has cleared. Mild residual prominence of the right extradural space. There are areas of decreased attenuation within the white matter tracts of the supratentorial brain, consistent with microvascular disease changes. Normal basal ganglia and thalami. Normal brainstem. There is mild cerebellar atrophy. There is no intracranial hemorrhage. There are no findings of an acute ischemic infarction. Atherosclerotic calcification of the cavernous portions of the internal carotid arteries bilaterally. Normal visualized paranasal sinuses. ASPECT score: 10 CT/STROKE Brain/Head without Cont IMPRESSION: Chronic involutional changes of the brain. The previously seen acute on chronic right subdural hematoma as resolved with minimal prominence of the right extradural CSF space. N.B. : The above Results were Read Back by Kirill Hager MD to Jeff Khan and understanding confirmed on 09/25/2023 10:50:49 (ET). Electronically Signed: Kirill Hager MD at 10:52 EDT ,
--- NOTE | 2023-09-25 10:27 | CT_ITS ---
STUDY: CTA HEAD AND NECK WITH CONTRAST REASON FOR EXAM: Female, 63 years old. Neuro deficit, acute, stroke suspected RADIATION DOSAGE (If Supplied By Facility): CTDIvol = ( 17.06 ) mGy, DLP = ( 518.51 ) mGycm TECHNIQUE: CT angiography was performed with a multi-detector CT scanner. Data acquisition was obtained from the skull base through the vertex following intravenous administration of IV 100mL [id number]-[id number]. MIP images were reconstructed from the axial data set. Post-processing of the angiographic images was performed, with multiplanar reformation and 3D reconstruction. Individualized dose optimization techniques were used for this CT. COMPARISON: No relevant priors. FINDINGS: Normal bilateral petrous carotid arteries. Normal right cavernous carotid artery with a normal supraclinoid bifurcation. Normal left cavernous carotid artery with a normal supraclinoid bifurcation. Normal right A1 segments of the anterior cerebral artery. Normal left A1 segments of the anterior cerebral artery. Normal intact anterior communicating artery (ACOM). Normal bilateral A2 segments of the anterior cerebral arteries. Normal right M1 and M2 segments of the middle cerebral arteries, with a normal M1 bifurcation. Normal left M1 and M2 segments of the middle cerebral arteries, with a normal M1 bifurcation. Normal right posterior communicating artery (PCOM). Normal left posterior communicating artery (PCOM). Normal bilateral vertebral arteries. Normal basilar artery with a normal basilar bifurcation. The visualized bilateral superior cerebellar (SCA) arteries are normal. Normal bilateral P1, P2 and visualized P3 segments of the posterior cerebral arteries. There is no demonstrated aneurysm of the [place]. Mild degree of echogenicity appearance of both lobes of the thyroid gland. AORTIC ARCH: There is mild degree of atherosclerotic calcific plaque formation of the aortic arch and great vessels arising from the aortic arch, without a hemodynamically significant stenosis. There is a normal origin of the brachiocephalic, left common carotid, and left subclavian arteries. RIGHT CAROTID ARTERIES: Normal right common carotid artery (CCA). Normal right common carotid bulb. Normal origin of the right internal carotid (ICA) artery without a hemodynamically significant stenosis. Normal visualized cervical portion of the right internal carotid artery. Normal origin of the right external carotid artery (ECA). LEFT CAROTID ARTERIES: Normal left common carotid artery (CCA). Normal left common carotid bulb. Normal origin of the left internal carotid (ICA) artery without a hemodynamically significant stenosis. Normal visualized cervical portion of the left internal carotid artery. Normal origin of the left external carotid artery (ECA). VERTEBRAL ARTERIES: Normal bilateral vertebral arteries. CT/STROKE CTA Head AND Neck W/Con IMPRESSION: Normal CTA Head and neck with contrast. N.B. : The above Results were Read Back by Kirill Hager MD to [facility] and understanding confirmed on 09/25/2023 11:00:41 (ET). Electronically Signed: Kirill Hager MD at 11:01 EDT ,
--- NOTE | 2023-09-25 10:28 | ED.VIS.STROK ---
HPI History of Present Illness Chief Complaint: Neuro S/Sx Detail of Chief Complaint: Problems with balance Informant: patient and family Onset/Context/Timing Onset: Today (729) Context: Sudden Onset Timing: Continuous Quality and Location: Positive for Difficulty with Ambulation (Falls to the left) Onset: 729 Current Severity: Moderate Maximum Severity: Moderate Worsened by: Attempt to ambulate Relieved by: Nothing Associated Symptoms Associated Symptoms: Positive for Nausea; Negative for Headache, Vomiting or Chest Pain Narrative Narrative: Patient is a 63-year-old woman who presents with strokelike symptoms that started at 0730. She did not have symptoms upon awakening. She states symptoms started 0730. She was brought in by family member because she is having difficulty ambulating. Doctor was called to triage. When patient was asked to ambulate she falls the left. Patient's gait is exacerbated when attempt at tandem gait. Patient denies headache. Patient denies double vision, blurred vision loss of vision. Patient denies trouble with speech or swallowing. Patient denies ringing or ears. Patient denies cardiac or respiratory symptoms. Patient denies GI or 's Prior similar symptoms: No Recent Illness/Hospitalization: No [facility] Medical History Neurofibroma Seizure disorder Home Medications carbamazepine 200 mg tablet 200 mg PO 5X/DAY seizure 04/28/19 [History Last Taken 09/25/23] clonazepam 1 mg tablet 1 mg PO QHS anxiety 04/28/19 [History Last Taken 09/24/23] divalproex 500 mg tablet,delayed release (Depakote) 1,000 mg PO BID seizure 04/28/19 [History Last Taken 09/25/23] levetiracetam 1,000 mg tablet (Keppra) 1,000 mg PO BID seizure 04/28/19 [History Last Taken 09/25/23] Allergy/AdvReac Type Severity Reaction Status Date / Time No Known Allergies Allergy Verified 06/30/23 10:29 Social History (Updated 09/25/23 @ 10:[address] Jeff Khan MD) household members: family Smoking Status: Never smoker substance use type: does not use ROS ROS ED Constitutional Constitutional ED: Denies chills, fever(s) or subjective Eyes Eyes: Denies blurry vision, change in vision or diplopia ENT ENT ED: Denies ear pain, rhinorrhea or sore throat Cardiovascular Cardiovascular: Denies chest pain or palpitations Respiratory/Chest Respiratory/Chest: Denies cough, dyspnea or dyspnea on exertion Gastrointestinal Gastrointestinal: Reports nausea; Denies abdominal pain or vomiting Genitourinary Genitourinary ED: Denies dysuria, hematuria or urinary frequency Musculoskeletal Musculoskeletal: Denies arthralgias, back pain or neck pain Integumentary Denies rash Neurologic Neurologic: Denies headache(s) or weakness Hematologic/Lymphatic Hematologic/Lymphatic: Denies easy bleeding or easy bruising EXAM Physical Exam Const Vital Signs: 09/25/23 10:25 09/25/23 10:44 09/25/23 10:46 Temperature 97 F L Temperature Source Temporal Pulse Rate 69 67 Respiratory Rate 18 12 Blood Pressure 114/55 L 99/47 L Blood Pressure Mean 74 64 Pulse Ox 100 100 Oxygen Delivery Method Room Air Room Air Room Air 09/25/23 11:13 09/25/23 10:26 09/25/23 10:28 Temperature 97.0 F L Temperature Source Temporal Temporal Pulse Rate 13 L 69 69 Respiratory Rate 67 H 18 18 Blood Pressure 105/59 L 114/55 L 114/55 L Blood Pressure Mean 74 74 74 Pulse Ox 100 97 100 Oxygen Delivery Method Room Air Room Air Room Air 09/25/23 10:58 Temperature Temperature Source Pulse Rate 67 Respiratory Rate 12 Blood Pressure 99/47 L Blood Pressure Mean 64 Pulse Ox 100 Oxygen Delivery Method Room Air Positive well nourished and well developed General Appearance ED: well developed and NAD HEENT Reports TM's clear and moist mucous membranes atraumatic Nose: other Other Details: Negative. Posterior pharynx is normal. Uvula is midline. Tympanic Membrane ED: Yes TM's clear Eyes PERRL and EOMs intact bilaterally Eyes Narrative: There is no nystagmus. There is no visual field cut. General Eye ED: Negative for pale conjunctiva or scleral icterus Neck no lymphadenopathy, supple and no JVD Chest Wall inspection of chest normal and palpation of chest normal Resp normal respiratory effort and clear to auscultation bilaterally Cardio no murmurs Rate: regular rate Rhythm: regular rhythm Heart Sounds: S1 normal and S2 normal GI normal to inspection, nondistended, normoactive bowel sounds, soft to palpation, non-tender, non-distended and no masses Back/Spine no CVA tenderness Extremity normal to inspection Neuro oriented x3, CN's II-XII intact bilaterally and no sensory deficits noted Julius Coma Scale: document GCS findings Spontaneous Obeys Commands Oriented 15 Sensorium / Orientation: alert Gait (Neuro): Negative for normal gait Motor Exam: strength 5/5 throughout Psych mental status grossly normal Skin Skin Narrative: Dermatologic and centimeters distant with neurofibromatosis General Skin Exam: Negative for jaundice Rashes: no rashes NIHSS NIHSS Initial: 1a Level of Consciousness: 0 1b LOC Questions (Score 2 if aphasic/stupor): 0 1c LOC Commands (Only score 1st attempt): 0 2 Best Gaze (If aphasic, use reflexive mvmts.): 0 3 Visual: 0 4 Facial Palsy: 0 5 Motor Arm Right (UN = amputation/fusion): 0 5 Motor Arm Left: 0 6 Motor Leg Right: 0 6 Motor Leg Left: 0 7 Limb ataxia (Only + if out of proportion): 0 8 Sensory (Aphasia/stupor=0 or 1, coma=2): 0 9 Best Language: 0 10 Dysarthria (mute, coma=2, intubated=UN): 0 11 Extinction and Inattention (only scored if +): 0 Total Score: 0 MDM MDM MDM Narrative Medical decision making narrative: Patient is NIH is 0 however she cannot ambulate. She falls to the left. Tandem gait exacerbated her problems with balance. Since this started 3 hours prior to presentation CT of the head as well as CTA of the head and neck was obtained to evaluate for any significant lesion that may be correctable.Stroke team was initiated. History & Record Review Discussion w/independent historian: Patient and Family Lab Data Attestation: I reviewed the patient's lab results. Labs: Laboratory Results - last 24 hr 09/25/23 09/25/23 10:27 10:33 WBC 5.5 RBC 3.52 L Hgb 11.0 L Hct 34.6 L MCV 98.3 MCH 31.3 MCHC 31.8 L RDW Std Deviation 55.1 H RDW Coeff of Amador 15.4 H Plt Count 165 MPV 9.7 Immature Gran % (Auto) 0.500 Neut % (Auto) 64.4 Lymph % (Auto) 21.1 Casey % (Auto) 10.7 H Eos % (Auto) 2.9 Baso % (Auto) 0.4 Absolute Neuts (auto) 3.5 Absolute Lymphs (auto) 1.16 Nucleated RBC % 0 PT 13.4 INR 1.0 APTT 28.5 Sodium 142 Potassium 3.5 Chloride 109 H Carbon Dioxide 29.0 Anion Gap 4 L BUN 20 H Creatinine 0.48 L Estim Creat Clear Calc 96.11 Est GFR (MDRD) Af Amer 166 Est GFR (MDRD) Non-Af 138 BUN/Creatinine Ratio 41.2 H Glucose 97 Calcium 8.4 L Troponin I High Sens 5 POC Glucose 91 Radiography Chest X-Ray - ED: Read by Radiologist (Residual hygroma from traumatic subdural with chronic changes.) Diagnostic Testing: Clinical Impression(s) from Imaging Studies Brain CT 09/25/23 10:26 IMPRESSION: Chronic involutional changes of the brain. The previously seen acute on chronic right subdural hematoma as resolved with minimal prominence of the right extradural CSF space. N.B. : The above Results were Read Back by Kirill Hager MD to [facility] and understanding confirmed on 09/25/2023 10:50:49 (ET). Electronically Signed: Kirill Hager MD at 10:52 EDT , ADDENDUM: 09/25/23 1059 IMPRESSION: Chronic involutional changes of the brain. The previously seen acute on chronic right subdural hematoma as resolved with minimal prominence of the right extradural CSF space. N.B. : The above Results were Read Back by Kirill Hager MD to [facility] and understanding confirmed on 09/25/2023 10:50:49 (ET). Electronically Signed: Kirill Hager MD at 10:52 EDT , Chest X-Ray 09/25/23 10:26 IMPRESSION: Normal x-ray examination of the chest. Electronically Signed: Kirill Hager MD at 11:13 EDT , Head/Neck CTA 09/25/23 10:27 IMPRESSION: Normal CTA Head and neck with contrast. N.B. : The above Results were Read Back by Kirill Hager MD to Jeff Khan and understanding confirmed on 09/25/2023 11:00:41 (ET). Electronically Signed: Kirill Hager MD at 11:01 EDT , ADDENDUM: 09/25/23 1108 IMPRESSION: Normal CTA Head and neck with contrast. N.B. : The above Results were Read Back by Kirill Hager MD to [facility] and understanding confirmed on 09/25/2023 11:00:41 (ET). Electronically Signed: Kirill Hager MD at 11:01 EDT , EKG Initial EKG: Attestation: I personally reviewed and interpreted this EKG as follows: Interpretation: Sinus Rhythm (Sinus rhythm rate of 66. There is significant artifact. There is no obvious abnormality noted. DE interval is 142 ms. QRS duration 92 ms. QT duration 4 and 46 ms. Lincoln is normal.) Management Discussion w/another healthcare provider: Hospitalist (Case discussed with Dr. Jung. Patient be a full admit to PCU.) and [employer] (Stroke neurologist at [facility]. Since patient had recent traumatic subdural she is not a candidate for TNK. Recommendation is admission with further work-up) Treatment and Re-Evaluation Narrative: Is seen by a neurologist, Dr. Payton Mulligan. Telephone number [phone]. Stroke Documentation Questions Stroke Team Activated: Yes Reviewed Inclusion/Exclusion criteria: Yes IV Thrombolytic Administered: No (Recent traumatic subdural hematoma, less than 2 months) No contraindications from thrombolytic administration: No (Traumatic subdural hematoma) Risks, Benefits, Alternatives Discussed: No Discharge Plan Triage Chief Complaint: Neuro S/Sx ED Provider: Jeff Khan Dx/Rx/DC Orders Clinical Impression: History of type 1 neurofibromatosis, Hx of subdural hematoma, Cerebellar stroke syndrome Prescriptions: No Action clonazepam 1 MG tablet 1 mg PO QHS divalproex [Depakote] 500 MG tablet,delayed release (DR/EC) 1,000 mg PO BID carbamazepine 200 MG tablet 200 mg PO 5X/DAY levetiracetam [Keppra] 1,000 MG tablet 1,000 mg PO BID Primary Care Provider: Dmitry Wiley Referrals: Dmitry Wiley DO [Primary Care Provider] - Disposition Disposition: Acute Care [facility]
--- NOTE | 2023-09-25 10:33 | ED.RN ---
PT PRESENTS WITH FAMILY MEMBER C/O DIZZINESS, FATIGUE, AND OFF BALANCE SINCE [address] WATERS CAME TO TRIAGE TO EVALUATE PT. STROKE ALERT CALLED AT 1027
[2023-09-25 10:47] LABS: Absolute Lymphocyte Count 1.16 X10^3/uL (0.83-4.51); Absolute Neutrophil Count 3.5 X10^3/uL (2.0-7.7); Basophil# 0.02 X10^3/uL; Basophil% 0.4 % (0-1); Eosinophil# 0.16 X10^3/uL; Eosinophils% 2.9 % (0-5); Hematocrit 34.6 % (37-47); Lymphocyte # 1.16 X10^3/ul (0.83-4.51); Lymphocyte % 21.1 % (19-41); Mean Corp Hgb Conc 31.8 g/dL (32-36); Mean Corpuscular Hgb 31.3 pg (27.0-32.0); Mean Corpuscular Volume 98.3 fL (81-99); Mean Platelet Vol. 9.7 fl (6.2-12.0); Monocyte# 0.59 X10^3/uL; Monocyte% 10.7 % (0-10); NRBC Flagged by Analyzer 0 % (0-5); Neutrophil # 3.53 X10^3/uL (2.7-7.7); Neutrophil % 64.4 % (47-70); Platelet Count 165 K/mm3 (150-450); RBC Distribution Width CV 15.4 % (11.6-14.6); RBC Distribution Width SD 55.1 fl (35.1-43.9); Red Blood Count 3.52 M/mm3 (4.2-5.4); White Blood Count 5.5 K/mm3 (4.4-11.0)
[2023-09-25 10:49] LABS: Bedside Glucose 91 mg/dL (74-106)
[2023-09-25 11:01] LABS: Partial Thromboplast Time 28.5 Seconds (24.1-36.2); Prothrombin Time (Protime)PT. 13.4 SECONDS (11.7-14.9)
[2023-09-25 11:05] LABS: Anion Gap 4 (5-15); BUN 20 mg/dL (7-18); BUN/Creat Ratio 41.2 RATIO (10-20); Calcium,Total 8.4 mg/dL (8.5-10.1); Chloride 109 mmol/L (98-107); Creatinine, Serum 0.48 mg/dL (0.55-1.02); EST Glomerular Filtration Rate 138 mL/min (>60); Est Glom Filt Rate - Afr Amer 166 mL/min (>60); Estimated Creatinine Clearance 96.11 ml/min; Glucose 97 mg/dL (74-106); Potassium 3.5 mmol/L (3.5-5.1); Sodium Level 142 mmol/L (136-145); Troponin-I HS 5 pg/mL (3.0-54.0)
--- NOTE | 2023-09-25 11:11 | ED.RN ---
Assumed care of patient
--- NOTE | 2023-09-25 12:12 | PCM.HP.STD ---
HPI - General General Date of Admission: 09/25/23 Date of Service: 09/25/23 Chief Complaint: Off balance, concern for cva HPI Narrative BROOKLYN KAUR, is a 63 F with history of subdural hematoma 2 months ago, epilepsy, neurofibromatosis type I who presented to [facility] 09/25/[facility]23 for an abrupt difficulty in balance. She was up around 7 AM walking and suddenly became so dizzy and off-balance she could not walk anymore. In the ED she was a stroke call however given her acute on chronic subdural beginning of June she was not a TNK candidate and local admission and stroke work-up recommended by [facility] neurology. Hospitalist contacted for admission. Patient evaluated at bedside with her family member/medical power of contracts attorney present. Patient reports she is very tired but otherwise has no acute complaints. She reports she is only off balance when she gets up to walk and she was walked in the ED and continued to have the imbalance problem but laying down no acute complaints. No changes in speech, no seizure-like activity and reports compliance with her medications. No numbness weakness or tingling, no headache. [facility] Medical History Neurofibroma Seizure disorder Home Medications carbamazepine 200 mg tablet 200 mg PO 5X/DAY seizure 04/28/19 [History Last Taken 09/25/23] clonazepam 1 mg tablet 1 mg PO QHS anxiety 04/28/19 [History Last Taken 09/24/23] divalproex 500 mg tablet,delayed release (Depakote) 1,000 mg PO BID seizure 04/28/19 [History Last Taken 09/25/23] levetiracetam 1,000 mg tablet (Keppra) 1,000 mg PO BID seizure 04/28/19 [History Last Taken 09/25/23] Allergy/AdvReac Type Severity Reaction Status Date / Time No Known Allergies Allergy Verified 06/30/23 10:29 Social History (Updated 09/25/23 @ 10:[address] Jeff Khan MD) household members: family Smoking Status: Never smoker substance use type: does not use ROS ROS Narrative General: Denies fever/chills, just feels tired HENT: Denies headache, denies stuffy nose, denies sore throat EYES: Denies changes in vision Resp: Denies cough, denies shortness of breath Cardiac: Denies chest pain GI: Denies abdominal pain, denies changes in bowel, denies nausea/vomiting : Denies changes in urination Extremity: Denies swelling MSK: Denies weakness Neuro: Denies any numbness/tingling, only reports feeling off balance Heme: Denies any bleeding or bruising Skin: Has neurofibromas diffusely Psychiatric: No complaints voiced Vital Signs Vital Signs Vital Signs: 09/25/23 10:25 09/25/23 10:44 09/25/23 10:46 Temperature 97 F L Temperature Source Temporal Pulse Rate 69 67 Respiratory Rate 18 12 Blood Pressure 114/55 L 99/47 L Blood Pressure Mean 74 64 Pulse Ox 100 100 Oxygen Delivery Method Room Air Room Air Room Air 09/25/23 11:13 09/25/23 10:26 09/25/23 10:28 Temperature 97.0 F L Temperature Source Temporal Temporal Pulse Rate 13 L 69 69 Respiratory Rate 67 H 18 18 Blood Pressure 105/59 L 114/55 L 114/55 L Blood Pressure Mean 74 74 74 Pulse Ox 100 97 100 Oxygen Delivery Method Room Air Room Air Room Air 09/25/23 10:58 Temperature Temperature Source Pulse Rate 67 Respiratory Rate 12 Blood Pressure 99/47 L Blood Pressure Mean 64 Pulse Ox 100 Oxygen Delivery Method Room Air Weight Weight: 55.792 kg Body Mass Index (BMI) 22.4 Physical Exam Narrative General: Alert, oriented, no apparent distress HEENT: Atraumatic, normocephalic Eyes: Anicteric, normal conjunctiva, extraocular movements intact, pupils equal Neck: Supple Respiratory: Clear to auscultation bilaterally, normal respiratory effort Cardiovascular: Regular rate and rhythm GI: Soft, nontender, nondistended Extremities: No edema Musculoskeletal: Strength 5 out of 5 in right upper extremity, 5 out of 5 left upper extremity, 4 out of 5 right lower extremity, 4 out of 5 left lower extremity Neuro: No overt focal neurological deficits, cranial nerves II through XII intact, [id number] with slight overcorrection but not substantially abnormal Skin: Neurofibromas seem diffusely,. Also have slight scaly rash on sides of fingers Psych: Cooperative Results Lab / Micro Data 09/25/23 10:33 09/25/23 10:33 Labs: Laboratory Results - last 24 hr 09/25/23 10:27: POC Glucose 91 09/25/23 10:33: WBC 5.5, RBC 3.52 L, Hgb 11.0 L, Hct 34.6 L, MCV 98.3, MCH 31.3, MCHC 31.8 L, RDW Std Deviation 55.1 H, RDW Coeff of Amador 15.4 H, Plt Count 165, MPV 9.7, Immature Gran % (Auto) 0.500, Neut % (Auto) 64.4, Lymph % (Auto) 21.1, Bates % (Auto) 10.7 H, Eos % (Auto) 2.9, Baso % (Auto) 0.4, Absolute Neuts (auto) 3.5, Absolute Lymphs (auto) 1.16, Nucleated RBC % 0, PT 13.4, INR 1.0, APTT 28.5, Sodium 142, Potassium 3.5, Chloride 109 H, Carbon Dioxide 29.0, Anion Gap 4 L, BUN 20 H, Creatinine 0.48 L, Estim Creat Clear Calc 96.11, Est GFR (MDRD) Af Amer 166, Est GFR (MDRD) Non-Af 138, BUN/Creatinine Ratio 41.2 H, Glucose 97, Calcium 8.4 L, Troponin I High Sens [address] 09/25/23 10:26 IMPRESSION: Chronic involutional changes of the brain. The previously seen acute on chronic right subdural hematoma as resolved with minimal prominence of the right extradural CSF space. N.B. : The above Results were Read Back by Kirill Hager MD to [facility] and understanding confirmed on 09/25/2023 10:50:49 (ET). Electronically Signed: Kirill Hager MD at 10:52 EDT , ADDENDUM: 09/25/23 1059 IMPRESSION: Chronic involutional changes of the brain. The previously seen acute on chronic right subdural hematoma as resolved with minimal prominence of the right extradural CSF space. N.B. : The above Results were Read Back by Kirill Hager MD to Jeff Khan and understanding confirmed on 09/25/2023 10:50:49 (ET). Electronically Signed: Kirill Hager MD at 10:52 EDT , Chest X-Ray 09/25/23 10:26 IMPRESSION: Normal x-ray examination of the chest. Electronically Signed: Kirill Hager MD at 11:13 EDT , Head/Neck CTA 09/25/23 10:27 IMPRESSION: Normal CTA Head and neck with contrast. N.B. : The above Results were Read Back by Kirill Hager MD to Jeff Khan and understanding confirmed on 09/25/2023 11:00:41 (ET). Electronically Signed: Kirill Hager MD at 11:01 EDT , ADDENDUM: 09/25/23 1108 IMPRESSION: Normal CTA Head and neck with contrast. N.B. : The above Results were Read Back by Kirill Hagre MD to Jeffbelia Khan and understanding confirmed on 09/25/2023 11:00:41 (ET). Electronically Signed: Kirill Hager MD at 11:01 EDT , Assessment & Plan Assessment/Plan (1) Dysequilibrium: (2) Hx of subdural hematoma: PLAN: Plan #Sudden onset dizziness and imbalance with history of subdural hematoma 06/2023 -Concerning for CVA -Admit to tele -CT head w/ no acute changes, previous subdural hematoma resolved, CTA with no LVO -MRI had ordered -NIH q4hr -asa, statin -Echo w/ bubble study -PT/OT/Speech eval -Hold BP medications to allow for permissive hypertension for 24 hours unless SBP greater than 220 or DBP greater than 120 or until stroke is ruled out #Seizure disorder -Continue home medications -We will check ammonia, liver panel, Depakote level #Neurofibromatosis type I -Per history, physical exam consistent with this #DVT ppx: Alfonso Jung MD Time spent in the patient's overall evaluation,decision-making process, review of diagnostic data, adjustment of management, discussion with other providers, nursing nursing and ancillary staff involved in patient's care documentation, 55 minutes Charges/Coding Visit Charges Inpatient E&M: 47054 Init Hosp L2
--- NOTE | 2023-09-25 12:22 | ECHOD_ITS ---
Reason For Study: TIA/CVA Procedure This was a 2D Doppler, Color Flow transthoracic echocardiogram. Exam performed portable in patient room. Left Ventricle Normal size and thickness. The left ventricular ejection fraction is 65 %. Stage 1 diastolic dysfunction. Right Ventricle Normal right ventricle. Atria The left and right atria are normal. Prominent eustachian valve. Bubble contrast study is negative for PFO/ASD. Mitral Valve Mild mitral annular calcification. Trivial mitral valve insufficiency. Tricuspid Valve Trivial tricuspid valve insufficiency. Normal pulmonary artery pressure. Aortic Valve Trisinus/trileaflet aortic valve. Pulmonic Valve The pulmonic valve is not well visualized. Great Vessels Normal sized aortic root. Pericardium/Pleural No pericardial effusion. Medication Performed a rapid injection of agitated mix of 9 cc saline and 1cc air to assess for atrial septal defect. MMode/2D Measurements & Calculations LVIDd: 3.9 cm IVSd: 1.0 cm Ao root diam: 3.1 cm LVIDs: 2.6 cm LVPWd: 0.93 cm LA dimension: 3.2 cm RVDd: 3.0 cm FS: 34.2 % LAV(MOD-bp): 40.4 ml LVAd ap4: 23.7 cm2 SV(MOD-sp4): 40.4 ml LAV(MOD-bp) Indexed: 26.0 ml/m2 LVLd ap4: 7.1 cm LAV(MOD-sp2): 47.2 ml EDV(MOD-sp4): 64.5 ml LAV(MOD-sp4): 31.0 ml EDV(sp4-el): 67.5 ml LVAs ap4: 13.1 cm2 LVLs ap4: 6.2 cm ESV(MOD-sp4): 24.1 ml ESV(sp4-el): 23.3 ml EF(MOD-sp4): 62.6 % EF(sp4-el): 65.5 % SV(sp4-el): 44.2 ml LA A4 area: 13.1 cm2 RA A4 area: 12.8 cm2 TAPSE: 1.8 cm Time Measurements MV dec time: 0.21 sec Doppler Measurements & Calculations MV E max sonido: 60.1 cm/sec Lat Peak E' Sonido: 7.9 cm/sec Med Peak E' Sonido: 9.6 cm/sec MV A max sonido: 111.2 cm/sec E/E' lat: 7.6 E/E' med: 6.3 MV E/A: 0.54 MV V2 max: 122.4 cm/sec MV P1/2t max sonido: 79.6 cm/sec Ao V2 max: 110.7 cm/sec MV max P.0 mmHg MV P1/2t: 85.4 msec Ao max P.9 mmHg MV V2 mean: 57.4 cm/sec Ao V2 mean: 74.4 cm/sec MV mean P.6 mmHg MV dec slope: 272.9 cm/sec2 Ao mean P.6 mmHg MV V2 VTI: 28.2 cm MVA(P1/2t): 2.6 cm2 Ao V2 VTI: 24.8 cm AV (velocity ratio): 0.84 LV V1 max: 96.6 cm/sec PA V2 max: 94.4 cm/sec TR max sonido: 263.3 cm/sec LV V1 max P.7 mmHg PA V2 mean: 67.3 cm/sec TR max P.7 mmHg LV V1 mean P.1 mmHg LV V1 mean: 68.8 cm/sec LV V1 VTI: 20.8 cm ECHO/Echo Complete Interpretation Summary The left ventricular ejection fraction is 65 %. Stage 1 diastolic dysfunction. Bubble contrast study is negative for PFO/ASD. Mild mitral annular calcification. Ordering Physician: Karen Jung Performed By: Howard Jules RCS
--- NOTE | 2023-09-25 12:22 | MRI_ITS ---
HISTORY: Concern for cerebellar CVA. TECHNIQUE: Multiplanar and multisequence MR images of the brain were obtained without contrast. 294 images. COMPARISON: CT earlier same day. FINDINGS: BRAIN PARENCHYMA: Multiple foci and small zones of increased T2 FLAIR signal in the bilateral scrotal white matter. No abnormal focus of restricted diffusion. No acute intracranial hemorrhage identified. CSF SPACES: Chronic right frontal subdural hygroma or chronic hematoma extending along the falx with mild signal heterogeneity and dural thickening over the cerebral convexity. Chronic left frontal subdural hygroma extending along the falx. Generalized volume loss. No significant midline shift or other mass effect. VASCULAR SYSTEM: Major intracranial flow voids are maintained. PARANASAL SINUSES AND MASTOID AIR CELLS: No significant air fluid levels. ORBITS: Symmetric contents. MRI/Brain without Contrast IMPRESSION: No evidence for acute infarct. Chronic right subdural hematoma with a mild late subacute hemorrhagic component. Chronic left subdural hygroma. No midline shift. Chronic involutional and white matter changes. Electronically Signed: Sole Harding MD at 16:01 EDT ,
[2023-09-25 18:03] LABS: AST(SGOT) 4 U/L (15-37); Alanine Aminotransfer ALT/SGPT 15 U/L (13-56); Albumin, Serum 2.7 g/dL (3.2-5.0); Alkaline Phosphatase 59 U/L (45-117); Bilirubin, Direct 0.08 mg/dL (0.00-0.30); Globulin 2.6 g/dL (2.2-4.2); Protein, Total 5.3 g/dL (6.4-8.2)
[2023-09-25] MEDS: Aspirin 81 MG TAB.CHEW 162 MG PO (18:22)
[2023-09-25] MEDS: clonazePAM 1 MG Tablet PO (21:09)
[2023-09-25] MEDS: Atorvastatin Calcium 80 MG Tablet PO (21:09)
[2023-09-25] MEDS: Divalproex (ER) 500 MG Tablet 1000 MG PO (21:09)
[2023-09-25 21:10] LABS: Valproic Acid (Depakene) Level 58 ug/mL (50-100)
[2023-09-25] MEDS: carBAMazepine 200 MG Tablet PO (22:18)
[2023-09-25] MEDS: levETIRAcetam 1,000 MG Tablet 1000 MG PO (22:19)
[2023-09-26 02:00] VITALS: BP 128/59; PULSE 61; RESP 16; TEMP 36.7; O2SAT 94
[2023-09-26 07:00] VITALS: BP 112/55; PULSE 67; RESP 16; TEMP 36.4; O2SAT 95
[2023-09-26 07:02] LABS: Absolute Lymphocyte Count 0.76 X10^3/uL (0.83-4.51); Absolute Neutrophil Count 2.2 X10^3/uL (2.0-7.7); Basophil# 0.02 X10^3/uL; Basophil% 0.5 % (0-1); Eosinophil# 0.17 X10^3/uL; Eosinophils% 4.6 % (0-5); Hematocrit 35.1 % (37-47); Hemoglobin 10.9 g/dL (12.0-15.0); Lymphocyte # 0.76 X10^3/ul (0.83-4.51); Lymphocyte % 20.4 % (19-41); Mean Corp Hgb Conc 31.1 g/dL (32-36); Mean Corpuscular Hgb 30.6 pg (27.0-32.0); Mean Corpuscular Volume 98.6 fL (81-99); Mean Platelet Vol. 9.6 fl (6.2-12.0); Monocyte# 0.53 X10^3/uL; Monocyte% 14.2 % (0-10); NRBC Flagged by Analyzer 0 % (0-5); Neutrophil # 2.21 X10^3/uL (2.7-7.7); Neutrophil % 59.5 % (47-70); Platelet Count 161 K/mm3 (150-450); RBC Distribution Width CV 15.1 % (11.6-14.6); RBC Distribution Width SD 54.7 fl (35.1-43.9); Red Blood Count 3.56 M/mm3 (4.2-5.4); White Blood Count 3.7 K/mm3 (4.4-11.0)
[2023-09-26 07:49] LABS: Anion Gap 5 (5-15); BUN 18 mg/dL (7-18); BUN/Creat Ratio 54.4 RATIO (10-20); Chloride 108 mmol/L (98-107); Cholesterol 179 mg/dL (200); Creatinine, Serum 0.33 mg/dL (0.55-1.02); EST Glomerular Filtration Rate 214 mL/min (>60); Est Glom Filt Rate - Afr Amer 259 mL/min (>60); Glucose 103 mg/dL (74-106); High Density Lipoprotein 78 mg/dL; Potassium 3.7 mmol/L (3.5-5.1); Sodium Level 141 mmol/L (136-145); Thyroid Stim Hormone (TSH) 0.85 uIU/mL (0.358-3.74)
[2023-09-26] MEDS: carBAMazepine 200 MG Tablet PO ×3 (08:02→14:08)
[2023-09-26] MEDS: Aspirin 81 MG TAB.CHEW PO (08:03)
--- NOTE | 2023-09-26 09:55 | CASEMGMT ---
RN JOSEPH Face to Face with patient for initial transition planning/care coordination assessment. RN CM introduced self and role at [facility]. Patient lying in bed, alert and oriented. Patient willing to participate in assessment and is able to answer all questions appropriately. Care providers, pharmacy, and demographics verified. Patient wishes to discharge home, denies need for home health at this time. Patient states she has no further needs or concerns at this time. CM to follow for discharge planning needs that may arise. PCP: Saurabh Specialists: none Preferred Pharmacy: [facility] Insurance: [employer] Prescription Benefit: yes Living Will/HPOA: patient is not sure if completed LNOK: brother, sister in law Living Arrangements: Patient lives with brother and sister in law in a single story home with 3 steps and railing to enter. Patient states she is independent at home. Transportation: brother, sister in law DME/HHC: Patient denies DME in the home. No previous HHC or SNF. Disposition Plan: Patient to discharge home with family support and follow-up plans in place. Willa HERMOSILLO, RN, CM
--- NOTE | 2023-09-26 10:37 | CASEMGMT ---
Social Work Pt does not have LW/POA, declined further information as per admitting RN. NARGIS Phoenix
--- NOTE | 2023-09-26 10:41 | CASEMGMT ---
Social Work PHQ-9 not completed as MRI was negative. NARGIS Phoenix
[2023-09-26 11:00] VITALS: BMI 21.6
[2023-09-26 11:05] VITALS: BP 139/77; PULSE 75; RESP 16; TEMP 36.8; O2SAT 97
--- NOTE | 2023-09-26 11:15 | CT_ITS ---
We are attempting to reach an attending provider to discuss findings. An addendum with communication details will be sent when the communication is complete. INDICATION: STROCK EXAMINATION: CT BRAIN - CT Head Stroke Protocol W/O Contrast Injection TECHNIQUE: Multiple axial images were obtained of the head without intravenous contrast. A radiation dose optimization technique was used for this scan. IV Contrast dosage and agent: None. RADIATION DOSAGE (If Supplied By Facility): CTDIvol = ( ) mGy, DLP = ( ) mGycm COMPARISON: September 25, 2023 FINDINGS: Cortical and central atrophy. Mild chronic microvascular ischemic change periventricular white matter. Mild cerebellar atrophy. Stable exam. ASPECTS Score for Acute Strokes: 10 CT/STROKE Brain/Head without Cont IMPRESSION: Moderate cortical and central atrophy, mild chronic microvascular ischemic change and mild cerebellar atrophy. Electronically Signed: Toby Fajardo MD at 11:29 EDT ,
--- NOTE | 2023-09-26 11:21 | CT_ITS ---
We are attempting to reach an attending provider to discuss findings. An addendum with communication details will be sent when the communication is complete. INDICATION: STROKE EXAMINATION: CT BRAIN WITH CONTRAST TECHNIQUE: Noncontrast axial images were obtained of the brain. Subsequently, routine carotid CT angiogram protocol was performed without and with IV contrast. In addition, images were obtained of the [place]. NASCET criteria using the distal ICAs for comparison were used for evaluation of stenoses. 3D reconstructions were reviewed. A radiation dose optimization technique was used for this scan. IV Contrast dosage and agent: COMPARISON: FINDINGS: --CT BRAIN: BRAIN PARENCHYMA: Mild cortical and central atrophy. Mild chronic microvascular ischemic change. Mild cerebellar atrophy. No intra- or extra-axial hemorrhage. No evidence of acute infarct. No intracranial mass or mass effect. There is preservation of the siddiqi/white matter interface. CSF SPACES: Appropriate for age. No hydrocephalus. Basal cisterns are patent. CALVARIUM, SKULL BASE, PARANASAL SINUSES AND MASTOID AIR CELLS: Clear. No discrete lytic or blastic abnormalities. ASPECTS Score for Acute Strokes: 10 --CTA NECK: AORTIC ARCH AND BRANCHES: Normal anatomy, patent. RIGHT CCA: No occlusion, significant stenosis or dissection. RIGHT ICA: No occlusion, significant stenosis or dissection. LEFT CCA: No occlusion, significant stenosis or dissection. LEFT ICA: No occlusion, significant stenosis or dissection. RIGHT VERTEBRAL ARTERY: Distal right vertebral artery extends into the right posterior inferior cerebellar artery. This is a normal anatomic variant. LEFT VERTEBRAL ARTERY: No occlusion, significant stenosis or dissection. NECK SOFT TISSUES: Unremarkable. --CTA HEAD: --Anterior circulation: ICAs: No significant stenosis at the intracranial/visualized segments. ACAs: No significant stenosis at the visualized segments. ACOM: Present. MCAs: No significant stenosis at the visualized segments. --Posterior circulation: PCOMs: valve machine operator: No significant stenosis at the visualized segments. BASILAR ARTERY: No significant stenosis. VERTEBRAL ARTERIES: No significant stenosis at the intradural/visualized segments. No evidence of intracranial aneurysm or vascular malformation. CT/STROKE CTA Head AND Neck W/Con IMPRESSION: Mild cortical and central atrophy. Mild chronic microvascular ischemic change. Mild cerebellar atrophy. Negative CTA Carotid, and CTA Brain. Electronically Signed: Toby Fajardo MD at 11:50 EDT ,
[2023-09-26 11:22] VITALS: O2SAT 99
[2023-09-26 11:25] LABS: Bedside Glucose 128 mg/dL (74-106)
[2023-09-26] MEDS: Divalproex (ER) 500 MG Tablet 1000 MG PO (11:40)
[2023-09-26] MEDS: levETIRAcetam 1,000 MG Tablet 1000 MG PO (11:40)
--- NOTE | 2023-09-26 13:55 | DCINST_ITS ---
Discharge Instructions Diet Discharge Diet: No restrictions Activity Discharge Activity: - (Seizure precautions) Follow Up Care Test Results: Test results from this visit will be discussed in further detail at your follow- up appointment, if applicable. Discharge Plan Admission Admit Date/Time: 09/25/23 12:12 Primary Reason for Your Visit: Being off balance Attending Provider: Karen Jung Primary Care Provider: Dmitry Wiley Instructions Patient Instructions: Epilepsy: Safety During a Seizure Discharge Orders/Prescriptions Prescriptions: Continued clonazepam 1 MG tablet 1 mg PO QHS divalproex [Depakote] 500 MG tablet,delayed release (DR/EC) 1,000 mg PO BID carbamazepine 200 MG tablet 200 mg PO 5X/DAY levetiracetam [Keppra] 1,000 MG tablet 1,000 mg PO BID Referrals / Follow Up: Dmitry Wiley DO [Primary Care Provider] - Within 1 Week Disposition Disposition (needs filled in before D/C Order can be placed): Acute Care Hospital
--- NOTE | 2023-09-26 13:57 | DS.PCM_ITS ---
Providers Date of Admission: 09/25/23 Date of Discharge: 09/26/23 Primary Care Physician: Dr. Dmitry Wiley DO Reason For Visit: Concern for cva Diagnosis Discharge Diagnosis (1) Dysequilibrium: Status: Acute Code(s): R42 - Dizziness and giddiness (2) Hx of subdural hematoma: Status: Acute Code(s): Z86.79 - Personal history of other diseases of the circulatory system Plan #Sudden onset dizziness and imbalance with history of subdural hematoma 06/2023 #Seizure disorder-concern for breakthrough seizures #Neurofibromatosis type I Medications at Discharge Home Medications carbamazepine 200 mg tablet 200 mg PO 5X/DAY seizure 04/28/19 clonazepam 1 mg tablet 1 mg PO QHS anxiety 04/28/19 divalproex 500 mg tablet,delayed release (Depakote) 1,000 mg PO BID seizure 04/28/19 levetiracetam 1,000 mg tablet (Keppra) 1,000 mg PO BID seizure 04/28/19 Hospital Course Summary of Care Provided Minutes Spent on Discharge: 40 Hospital Course: Per HPI: BROOKLYN KAUR, is a 63 F with history of subdural hematoma 2 months ago, epilepsy, neurofibromatosis type I who presented to [facility] 09/25/2023 for an abrupt difficulty in balance. She was up around 7 AM walking and suddenly became so dizzy and off-balance she could not walk anymore. In the ED she was a stroke call however given her acute on chronic subdural beginning of June she was not a TNK candidate and local admission and stroke work-up recommended by [facility] neurology. Hospitalist contacted for admission. Patient evaluated at bedside with her family member/medical power of claim attorney present. Patient reports she is very tired but otherwise has no acute complaints. She reports she is only off balance when she gets up to walk and she was walked in the ED and continued to have the imbalance problem but laying down no acute complaints. No changes in speech, no seizure- like activity and reports compliance with her medications. No numbness weakness or tingling, no headache. INTERVAL HISTORY: Patient was doing much better by morning however on my exam patient was cooperative and following commands and then suddenly stopped responding and following commands, eyes open staring out, moved left hand slightly but would not move right hand or legs, repeat stroke call initiated, patient taken down for CT and CTA, symptoms resolved by the time neurology beamed in, no new acute stroke. Discussed with neurologist and concerned that this episode yesterday may be breakthrough seizures and that she needs inpatient neurology evaluation and EEG and he recommended transfer to tertiary facility. Discussed with patient and her family, patient to be transferred to [facility]. Physical Exam Narrative Physical exam prior to repeat stroke call: General: Alert, oriented, no apparent distress HEENT: Atraumatic, normocephalic Eyes: Anicteric, normal conjunctiva, extraocular movements grossly intact Neck: Supple Respiratory: Clear to auscultation bilaterally, normal respiratory effort Cardiovascular: Regular rate and rhythm GI: Soft, nontender, nondistended Extremities: No edema Musculoskeletal: Moving all extremities Neuro: No overt focal neurological deficits Skin: No rashes appreciated Psych: Cooperative Weight / BMI Weight Weight: 53.7 kg Body Mass Index (BMI) 21.6 ABG / Lab / Microbiology Data 09/26/23 06:43 09/26/23 06:43 Laboratory: Laboratory Results - last 24 hr 09/25/23 10:33: Total Bilirubin 0.20, Direct Bilirubin 0.08, AST 4 L, ALT 15, Alkaline Phosphatase 59, Total Protein 5.3 L, Albumin 2.7 L, Globulin 2.6 09/25/23 13:37: Ammonia 14.0 09/25/23 20:28: Valproic Acid 58 09/26/23 06:43: WBC 3.7 L, RBC 3.56 L, Hgb 10.9 L, Hct 35.1 L, MCV 98.6, MCH 30.6, MCHC 31.1 L, RDW Std Deviation 54.7 H, RDW Coeff of [place] 15.1 H, Plt Count 161, MPV 9.6, Immature Gran % (Auto) 0.800, Neut % (Auto) 59.5, Lymph % (Auto) 20.4, [place] % (Auto) 14.2 H, Eos % (Auto) 4.6, Baso % (Auto) 0.5, Absolute Neuts (auto) 2.2, Absolute Lymphs (auto) 0.76 L, Nucleated RBC % 0, Sodium 141, Potassium 3.7, Chloride 108 H, Carbon Dioxide 28.0, Anion Gap 5, BUN 18, Creatinine 0.33 L, Estim Creat Clear Calc 139.80, Est GFR (MDRD) Af Amer 259, Est GFR (MDRD) Non-Af 214, BUN/Creatinine Ratio 54.4 H, Glucose 103, Calcium 9.0, Triglycerides 83, Cholesterol 179, LDL Cholesterol 84, VLDL Cholesterol 17, HDL Cholesterol 78, TSH 0.85 09/26/23 11:06: POC Glucose 128 H Radiography Diagnostic Testing: Radiology Impression Brain MRI 09/25/23 12:22 IMPRESSION: No evidence for acute infarct. Chronic right subdural hematoma with a mild late subacute hemorrhagic component. Chronic left subdural hygroma. No midline shift. Chronic involutional and white matter changes. Electronically Signed: Sole Harding MD at 16:01 EDT , Echocardiogram 09/25/23 12:22 Interpretation Summary The left ventricular ejection fraction is 65 %. Stage 1 diastolic dysfunction. Bubble contrast study is negative for PFO/ASD. Mild mitral annular calcification. Ordering Physician: Karen Jung Performed By: Howard Jules RCS Brain CT 09/26/23 11:15 IMPRESSION: Moderate cortical and central atrophy, mild chronic microvascular ischemic change and mild cerebellar atrophy. Electronically Signed: Toby Fajardo MD at 11:29 EDT , ADDENDUM: 09/26/23 1151 IMPRESSION: Moderate cortical and central atrophy, mild chronic microvascular ischemic change and mild cerebellar atrophy. N.B. : The above Results were Read Back by Toby Fajardo MD to Ashley Stockton RN, and understanding confirmed on 09/26/2023 11:44:37 (ET). Electronically Signed: Toby Fajardo MD at 11:29 EDT , Head/Neck CTA 09/26/23 11:21 IMPRESSION: Mild cortical and central atrophy. Mild chronic microvascular ischemic change. Mild cerebellar atrophy. Negative CTA Carotid, and CTA Brain. Electronically Signed: Toby Fajardo MD at 11:50 EDT , ADDENDUM: 09/26/23 1211 IMPRESSION: Mild cortical and central atrophy. Mild chronic microvascular ischemic change. Mild cerebellar atrophy. Negative CTA Carotid, and CTA Brain. N.B. : The above Results were Read Back by Toby Fajardo MD to Erinn Lacy RN, and understanding confirmed on 09/26/2023 12:04:33 (ET). Electronically Signed: Toby Fajardo MD at 11:50 EDT , D/C Instructions Discharge Diet: No restrictions Meaningful Use Info Meaningful Use Diagnoses (Choose all that apply): None applicable Discharge Plan Admission Admit Date/Time: 09/25/23 12:12 Primary Reason for Your Visit: Being off balance Attending Provider: Karen Jung Primary Care Provider: Dmitry Wiley Instructions Patient Instructions: Epilepsy: Safety During a Seizure Discharge Orders/Prescriptions Prescriptions: Continued clonazepam 1 MG tablet 1 mg PO QHS divalproex [Depakote] 500 MG tablet,delayed release (DR/EC) 1,000 mg PO BID carbamazepine 200 MG tablet 200 mg PO 5X/DAY levetiracetam [Keppra] 1,000 MG tablet 1,000 mg PO BID Referrals / Follow Up: Dmitry Wiley DO [Primary Care Provider] - Within 1 Week Disposition Disposition (needs filled in before D/C Order can be placed): Acute Care Hospital Charges/Coding Visit Charges Inpatient E&M: 44505 Disch Hosp >30min
[2023-09-26 14:07] VITALS: BP 126/52; PULSE 68; RESP 16; TEMP 36.4; O2SAT 98
[2023-09-26 14:48] VITALS: BMI 21.6
--- NOTE | 2023-09-26 15:07 | NURSING ---
Report Called to [facility].
[2023-09-27 07:21] LABS: Triglycerides 117 mg/dL
[2023-09-27 07:22] LABS: Very Low Density Lipoprotein 23 mg/dL (5-40)
== END 2023-09-26 16:13 | disposition short-term general hospital (02) | DRG 101 ==
LOC: ED 13:19 → PCU 14:01
PROVIDERS: Admitting Provider Internal Medicine; Emergency Provider Emergency Medicine; PCP Family Medicine; Visit Provider Internal Medicine
DX: G40.909 Epilepsy, unspecified, not intractable, without status epilepticus (principal); Q85.01 Neurofibromatosis, type 1; Z86.79 Personal history of other diseases of the circulatory system; Z79.899 Other long term (current) drug therapy
CPT/HCPCS: 36415; 70450; 70496; 70498; 70551; 71045; 80048; 80061; 80076; 80164; 82140; 82962; 84443; 84484; 85025; 85610; 85730; 92610; 93005; 93306; 94762; 99285; Q9957; Q9967; A4216

== ENCOUNTER 2024-03-01 11:10 | Emergency (ER) | payer MEDICARE, MEDICAID, SELFPAY ==
[2024-03-01] VITALS (20 sets, daily range): BP systolic 107–145; BP diastolic 54–73; PULSE 57–69; RESP 9–15; TEMP 36.1–36.8; O2SAT 98–100
--- NOTE | 2024-03-01 11:17 | ED.RN ---
THIS RN HAD PT WALK AROUND TO OBSERVE GAIT, NO LEG DRAGGING NOTED, SISTER IN LAW AGREED.
--- NOTE | 2024-03-01 11:49 | EKG12_ITS ---
Test Reason : NEURO S/SX Blood Pressure : / mmHG Vent. Rate : 063 BPM Atrial Rate : 063 BPM P-R Int : 184 ms QRS Dur : 092 ms QT Int : 440 ms P-R-T Axes : 060 -31 035 degrees QTc Int : 450 ms Normal sinus rhythm Left axis deviation Abnormal ECG Confirmed by EDSON DUNLAP, VICENTE ([id number]), city editor ZECHARIAH GRECO ([id number]) on 03/02/2024 9:35:10 AM Referred By: Confirmed By:VICENTE SANDHU MD
--- NOTE | 2024-03-01 12:01 | EX.ED.DYSGE1 ---
HPI History of Present Illness Chief Complaint: Neuro S/Sx Informant: patient and family Narrative Narrative: 63-year-old female history of neurofibromatosis and seizure disorder presenting to the emergency department with a chief complaint of right-sided weakness family states that she lives with. They state that she seemed normal today when they took her to the workshop. Staff there report that she was not moving the right arm or leg as well. The report is that she seems like she was dragging her foot. Patient does not recall feeling that way. Patient is not doing it at this time. Her seizures are reported to be confusion and staring off. Family states that she has been well-controlled with her seizures with Tegretol Depakote and Keppra. [facility] Medical History Neurofibroma Non-smoker Seizure disorder Seizures TIA (transient ischemic attack) Home Medications carbamazepine 200 mg tablet 200 mg PO 5X/DAY seizure 04/28/19 [History Last Taken 09/25/23] clonazepam 1 mg tablet 1 mg PO QHS anxiety 04/28/19 [History Last Taken 09/24/23] divalproex 500 mg tablet,delayed release (Depakote) 1,000 mg PO BID seizure 04/28/19 [History Last Taken 09/25/23] levetiracetam 1,000 mg tablet (Keppra) 1,000 mg PO BID seizure 04/28/19 [History Last Taken 09/25/23] Allergy/AdvReac Type Severity Reaction Status Date / Time No Known Allergies Allergy Verified 03/01/24 11:11 Social History household members: family Smoking Status: Never smoker substance use type: does not use ROS ROS ED Constitutional Constitutional ED: Denies chills, fever(s) or weight loss Eyes Eyes: Denies blurry vision, change in vision or diplopia ENT ENT ED: Denies ear pain, rhinorrhea or sore throat Cardiovascular Cardiovascular: Denies chest pain, orthopnea, palpitations or racing heartbeat Respiratory/Chest Respiratory/Chest: Denies cough, dyspnea or orthopnea Gastrointestinal Gastrointestinal: Denies abdominal pain, diarrhea, nausea or vomiting Genitourinary Genitourinary ED: Denies dysuria, hematuria or urinary frequency Musculoskeletal Musculoskeletal: Denies arthralgias or myalgias Integumentary Denies abscess or rash Neurologic Neurologic: Reports other Details: Reported weakness right arm right leg ; Denies headache(s) or paresthesias Psychiatric Psychiatric: Denies anxiety, depression, suicidal ideation or suicidal thoughts Endocrine Endocrinology: Denies polydipsia, polyphagia or polyuria Allergic/Immunologic Allergic/Immunologic ED: Denies mouth swelling, tongue swelling or urticaria EXAM Physical Exam Const Vital Signs: 03/01/24 11:10 03/01/24 11:36 03/01/24 12:55 Temperature 97 F L Temperature Source Temporal Pulse Rate 69 64 64 Respiratory Rate 14 14 12 Blood Pressure 119/55 L 116/55 L 107/61 Blood Pressure Mean 76 75 76 Pulse Ox 99 98 98 Oxygen Delivery Method Room Air Room Air Room Air 03/01/24 14:05 03/01/24 14:07 Temperature 97.6 F L 98.2 F Temperature Source Oral Pulse Rate 60 61 Respiratory Rate 12 14 Blood Pressure 123/61 H 119/59 L Blood Pressure Mean 81 79 Pulse Ox 99 99 Oxygen Delivery Method Room Air Positive well nourished and well developed General Appearance ED: well developed HEENT Reports normocephalic, head/scalp atraumatic and moist mucous membranes Eyes PERRL and EOMs intact bilaterally Neck no lymphadenopathy, supple and no JVD Resp normal respiratory effort and clear to auscultation bilaterally Cardio regular rate, regular rhythm and no murmurs GI normal to inspection, nondistended, normoactive bowel sounds and non-tender Palpation: soft Back/Spine no CVA tenderness and normal ROM Extremity normal to inspection General Extremety ED: Negative for edema General Extremity: Negative for edema Neuro oriented x3 and CN's II-XII intact bilaterally Sensorium / Orientation: alert Motor Exam: strength 5/5 throughout Psych mental status grossly normal Mood & Affect: Negative for depressed or tearful Skin no rashes or lesions noted and no wounds Skin Narrative: Chronic skin changes associated with neurofibromatosis MDM MDM MDM Narrative Medical decision making narrative: Basic blood work is obtained is rather unremarkable. Glucose of 89 valproic acid 79 creatinine 0.50 white count 6.4 hemoglobin 12.[address] of the brain was obtained as part of the CTA workup. This demonstrated bilateral acute on chronic subdurals. A CTA thus was not performed. The patient was seen at [facility] last June for a right subdural. I asked the patient and her sister again and they again deny any recent trauma or falls. I spoke with the MICU attending at [facility] and the patient has been accepted there. She remains in a stable condition. History & Record Review Discussion w/independent historian: Patient and Family Additional record(s) reviewed:: Prior inpatient record, Prior ED visit and Prior labs Lab Data Attestation: I reviewed the patient's lab results. Labs: Laboratory Results - last 24 hr 03/01/24 03/01/24 11:40 12:50 WBC 6.4 RBC 4.15 L Hgb 12.1 Hct 38.7 MCV 93.3 MCH 29.2 MCHC 31.3 L RDW Std Deviation 51.6 H RDW Coeff of [place] 15.0 H Plt Count 220 MPV 10.1 Immature Gran % (Auto) 0.500 Neut % (Auto) 62.1 Lymph % (Auto) 20.3 [place] % (Auto) 13.4 H Eos % (Auto) 2.8 Baso % (Auto) 0.9 Absolute Neuts (auto) 4.0 Absolute Lymphs (auto) 1.29 Nucleated RBC % 0 PT 13.6 INR 1.0 APTT 31.9 Sodium 141 Potassium 3.9 Chloride 107 Carbon Dioxide 27.0 Anion Gap 7 BUN 20 H Creatinine 0.50 L Est GFR (MDRD) Af Amer 161 Est GFR (MDRD) Non-Af 133 BUN/Creatinine Ratio 40.1 H Glucose 89 Calcium 8.6 Valproic Acid 79 Radiography Diagnostic Testing: Clinical Impression(s) from Imaging Studies Brain CT 03/01/24 12:35 IMPRESSION: Moderate degree of bilateral acute on chronic subdural hematomas worse on the right side. No midline shift is seen. Cerebral atrophy. N.B. : The above Results were Read Back by Kirill Hager MD to Reji Hoffmann DO, and understanding confirmed on 03/01/2024 13:07:14 (ET). Electronically Signed: Kirill Hager MD at 13:08 EDT , ADDENDUM: 03/01/24 1315 IMPRESSION: Moderate degree of bilateral acute on chronic subdural hematomas worse on the right side. No midline shift is seen. Cerebral atrophy. N.B. : The above Results were Read Back by Kirill Hager MD to Reji Hoffmann DO, and understanding confirmed on 03/01/2024 13:07:14 (ET). Electronically Signed: Kirill Hager MD at 13:08 EDT , EKG Initial EKG: Attestation: I personally reviewed and interpreted this EKG as follows: Interpretation: Sinus Rhythm Comments: Normal sinus rhythm ventricular rate of 63 bpm Management Discussion w/another healthcare provider: Burner Machine Operator (TONNY OROZCO - Dr. Alatorre) Discharge Plan Triage Chief Complaint: Neuro S/Sx ED Provider: Reji Hoffmann Dx/Rx/DC Orders Prescriptions: No Action clonazepam 1 MG tablet 1 mg PO QHS divalproex [Depakote] 500 MG tablet,delayed release (DR/EC) 1,000 mg PO BID carbamazepine 200 MG tablet 200 mg PO 5X/DAY levetiracetam [Keppra] 1,000 MG tablet 1,000 mg PO BID Primary Care Provider: Dmitry Wiley Referrals: Dmitry Wiley DO [Primary Care Provider] -
[2024-03-01 12:03] LABS: Absolute Lymphocyte Count 1.29 X10^3/uL (0.83-4.51); Basophil# 0.06 X10^3/uL; Basophil% 0.9 % (0-1); Eosinophil# 0.18 X10^3/uL; Eosinophils% 2.8 % (0-5); Hematocrit 38.7 % (37-47); Hemoglobin 12.1 g/dL (12.0-15.0); Lymphocyte # 1.29 X10^3/ul (0.83-4.51); Lymphocyte % 20.3 % (19-41); Mean Corp Hgb Conc 31.3 g/dL (32-36); Mean Corpuscular Hgb 29.2 pg (27.0-32.0); Mean Corpuscular Volume 93.3 fL (81-99); Mean Platelet Vol. 10.1 fl (6.2-12.0); Monocyte# 0.85 X10^3/uL; Monocyte% 13.4 % (0-10); NRBC Flagged by Analyzer 0 % (0-5); Neutrophil # 3.95 X10^3/uL (2.7-7.7); Neutrophil % 62.1 % (47-70); Platelet Count 220 K/mm3 (150-450); RBC Distribution Width SD 51.6 fl (35.1-43.9); Red Blood Count 4.15 M/mm3 (4.2-5.4); White Blood Count 6.4 K/mm3 (4.4-11.0)
[2024-03-01 12:15] LABS: Anion Gap 7 (5-15); BUN 20 mg/dL (7-18); BUN/Creat Ratio 40.1 RATIO (10-20); Calcium,Total 8.6 mg/dL (8.5-10.1); Chloride 107 mmol/L (98-107); EST Glomerular Filtration Rate 133 mL/min (>60); Est Glom Filt Rate - Afr Amer 161 mL/min (>60); Glucose 89 mg/dL (74-106); Potassium 3.9 mmol/L (3.5-5.1); Sodium Level 141 mmol/L (136-145)
--- NOTE | 2024-03-01 12:35 | CT_ITS ---
STUDY: CT BRAIN WITHOUT CONTRAST REASON FOR EXAM: Female, 63 years old. TIAs. RADIATION DOSAGE (If Supplied By Facility): CTDIvol = ( 44.99 ) mGy, DLP = ( 812.98 ) mGycm TECHNIQUE: Transaxial CT imaging of the brain was performed without administration of intravenous contrast material. Individualized dose optimization techniques were used for this CT. COMPARISON: Comparison is made with prior study September 18, 2023. FINDINGS: Normal soft tissue structures. Normal calvarium. Moderate bilateral acute on chronic subdural hematomas. Slightly more prominent on the right side. No significant midline shift is seen. Normal white matter tracts of the cerebral hemispheres. Normal basal ganglia and thalami. Normal brainstem. There is mild cerebellar atrophy. There are no findings of an acute ischemic infarction. Normal visualized paranasal sinuses. CT/Brain/Head without Contrast IMPRESSION: Moderate degree of bilateral acute on chronic subdural hematomas worse on the right side. No midline shift is seen. Cerebral atrophy. N.B. : The above Results were Read Back by Kirill Hager MD to Reji Hoffmann DO, and understanding confirmed on 03/01/2024 13:07:14 (ET). Electronically Signed: Kirill Hager MD at 13:08 EDT ,
[2024-03-01 12:52] LABS: Prothrombin Time (Protime)PT. 13.6 SECONDS (11.7-14.9)
[2024-03-01 12:53] LABS: Partial Thromboplast Time 31.9 Seconds (24.1-36.2)
[2024-03-01 14:19] LABS: Valproic Acid (Depakene) Level 79 ug/mL (50-100)
--- NOTE | 2024-03-01 14:40 | ED.RN ---
attempted to call report to [facility] but they are unable to take report at this time.
--- NOTE | 2024-03-01 14:53 | NURSING ---
CALLED [facility], ETA IS 2 HRS
--- NOTE | 2024-03-01 15:12 | ED.RN ---
pt needs reminder that she is at [facility]. otherwise alert/oriented
--- NOTE | 2024-03-01 15:15 | ED.RN ---
reported NIH of zero and states nursing does not need to complete the NIH. neuro assessments have been completed by this RN.
--- NOTE | 2024-03-01 16:57 | NURSING ---
CALLED [facility], ETA IS 10 MIN
== END 2024-03-01 17:40 | disposition short-term general hospital (02) ==
PROVIDERS: Emergency Provider Emergency Medicine; PCP Family Medicine; Visit Provider Emergency Medicine
DX: I62.03 Nontraumatic chronic subdural hemorrhage (principal); G81.91 Hemiplegia, unspecified affecting right dominant side; G40.909 Epilepsy, unspecified, not intractable, without status epilepticus; I62.01 Nontraumatic acute subdural hemorrhage; Q85.00 Neurofibromatosis, unspecified; R41.0 Disorientation, unspecified; G31.9 Degenerative disease of nervous system, unspecified
CPT/HCPCS: 70450; 80048; 80164; 85025; 85610; 85730; 93005; 99285; A4216

== ENCOUNTER 2024-04-14 09:04 | Emergency (ER) | payer OTHER, MEDICARE, MEDICAID, SELFPAY ==
[2024-04-14 09:04] VITALS: BP 129/66; PULSE 73; RESP 16; TEMP 36.6; O2SAT 97; BMI 21.7
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
[2024-04-14 11:04] VITALS: BP 131/50; PULSE 67; RESP 16; O2SAT 97
[2024-04-14 11:39] VITALS: BP 131/50; PULSE 66; RESP 16; TEMP 36.8; O2SAT 97
== END 2024-04-14 11:41 | disposition home or self-care (01) ==
PROVIDERS: Emergency Provider Emergency Medicine; PCP Family Medicine; Visit Provider Emergency Medicine
DX: S40.011A Contusion of right shoulder, initial encounter (principal); V73.6XXA Passenger on bus injured in collision with car, pick-up truck or van in traffic accident, initial encounter; Z98.890 Other specified postprocedural states
CPT/HCPCS: 70450; 72125; 73030; 99282

== ENCOUNTER 2024-08-05 09:27 | Emergency (ER) | payer MEDICARE, MEDICAID, SELFPAY ==
[2024-08-05] VITALS (12 sets, daily range): BP systolic 116–159; BP diastolic 63–83; PULSE 63–97; RESP 10–18; TEMP 36.4–36.7; O2SAT 84–100; BMI 22.6
--- NOTE | 2024-08-05 09:55 | EKG12_ITS ---
Test Reason : COUGH Blood Pressure : / mmHG Vent. Rate : 080 BPM Atrial Rate : 080 BPM P-R Int : 172 ms QRS Dur : 086 ms QT Int : 392 ms P-R-T Axes : 073 -44 045 degrees QTc Int : 452 ms Normal sinus rhythm Left axis deviation Abnormal ECG Confirmed by EDSON DUNLAP, VICENTE ([id number]), newspaper copy editor COLTON ECHEVARRIA ([id number]) on 08/08/2024 6:46:10 AM Referred By: Confirmed By:VICENTE SANDHU MD
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
[2024-08-05 10:20] LABS: Absolute Lymphocyte Count 1.07 X10^3/uL (0.83-4.51); Absolute Neutrophil Count 2.4 X10^3/uL (2.0-7.7); Basophil# 0.04 X10^3/uL; Basophil% 0.8 % (0-1); Eosinophil# 0.37 X10^3/uL; Eosinophils% 7.7 % (0-5); Hematocrit 42.6 % (37-47); Hemoglobin 13.4 g/dL (12.0-15.0); Lymphocyte # 1.07 X10^3/ul (0.83-4.51); Lymphocyte % 22.2 % (19-41); Mean Corp Hgb Conc 31.5 g/dL (32-36); Mean Corpuscular Hgb 30.1 pg (27.0-32.0); Mean Corpuscular Volume 95.7 fL (81-99); Mean Platelet Vol. 10.1 fl (6.2-12.0); Monocyte# 0.92 X10^3/uL; Monocyte% 19.1 % (0-10); NRBC Flagged by Analyzer 0 % (0-5); Neutrophil # 2.38 X10^3/uL (2.7-7.7); Neutrophil % 49.4 % (47-70); Platelet Count 146 K/mm3 (150-450); RBC Distribution Width CV 14.8 % (11.6-14.6); RBC Distribution Width SD 51.5 fl (35.1-43.9); Red Blood Count 4.45 M/mm3 (4.2-5.4); White Blood Count 4.8 K/mm3 (4.4-11.0)
[2024-08-05 10:38] LABS: Anion Gap 4 (5-15); BUN 20 mg/dL (7-18); BUN/Creat Ratio 33.6 RATIO (10-20); Calcium,Total 9.1 mg/dL (8.5-10.1); Chloride 110 mmol/L (98-107); EST Glomerular Filtration Rate 108 mL/min (>60); Est Glom Filt Rate - Afr Amer 131 mL/min (>60); Glucose 103 mg/dL (74-106); Potassium 3.6 mmol/L (3.5-5.1); Sodium Level 143 mmol/L (136-145); Troponin-I HS 5 pg/mL (3.0-54.0)
[2024-08-05 10:59] LABS: BNP,B-Type NATRIURETIC PEPTIDE 39.5 pg/mL (0-100)
--- NOTE | 2024-08-05 11:00 | RAD_ITS ---
STUDY: X-RAY CHEST REASON FOR EXAM: Female, 64 years old. Cough, sob TECHNIQUE: AP and lateral views of the chest. COMPARISON: Comparison is made with prior study dated September 25, 2023. FINDINGS: EKG electrodes are seen. The lungs are clear and expanded. There is no demonstrated pleural abnormality. Normal size heart. Normal mediastinum and jesús. Normal visualized pulmonary arteries. Normal visualized aortic arch and descending thoracic aorta. Normal visualized thoracic spine. Normal visualized ribs, clavicles, and shoulders. There is no demonstrated abnormality of the visualized soft tissue structures of the upper abdomen. RAD/Chest PA and Lateral IMPRESSION: Normal x-ray examination of the chest. Electronically Signed: Kirill Hager MD at 11:20 EDT ,
--- NOTE | 2024-08-05 12:37 | ED.RN ---
at bedside at 1230 to inform pt of bleeding noted on CT scan. He will initiate transfer.
--- NOTE | 2024-08-05 12:56 | NURSING ---
called [facility] for transfer
--- NOTE | 2024-08-05 13:18 | ED.RN ---
spoke with Dr. Hammond. states to complete 1 NIH and then resume with glascow coma scale and vitals. notify about BP parameters prior to prn medications.
--- NOTE | 2024-08-05 13:25 | NURSING ---
ACCEPTED AT [address]
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
--- NOTE | 2024-08-05 13:54 | ED.RN ---
Dr. Hammond notified as requested of last sbp > 140. Verbal order given to give prn labetalol.
[2024-08-05] MEDS: Labetalol (Prefilled) 20 MG/4 ML 10 MG IV (14:04)
--- NOTE | 2024-08-05 14:21 | ED.RN ---
Dr. Hammond notified of bp not improved with x1 dose of labetolol. Verbal order received to start nicardipine.
[2024-08-05] MEDS: Nicardipine HCl-0.9% Sod Chlor 20 MG/200 ML IV.SOLN 50 MG CONT INF (14:29)
== END 2024-08-05 14:35 | disposition other institution (70) ==
PROVIDERS: Emergency Provider Emergency Medicine; PCP Family Medicine; Visit Provider Emergency Medicine
DX: I61.2 Nontraumatic intracerebral hemorrhage in hemisphere, unspecified (principal); G40.909 Epilepsy, unspecified, not intractable, without status epilepticus; I62.02 Nontraumatic subacute subdural hemorrhage; Q85.01 Neurofibromatosis, type 1; R06.02 Shortness of breath; R05.9 Cough, unspecified; Z79.899 Other long term (current) drug therapy
CPT/HCPCS: 70450; 71046; 80048; 83880; 84484; 85025; 87631; 93005; 96374; 96375; 96376; 99285; A4216

== ENCOUNTER 2024-09-30 11:57 | Emergency (ER) | payer MEDICARE, MEDICAID, SELFPAY ==
[2024-09-30 11:57] VITALS: BP 140/91; PULSE 73; RESP 18; TEMP 36.4; O2SAT 98; BMI 21.3
[2024-09-30 12:21] VITALS: O2SAT 98
[2024-09-30 12:32] LABS: Absolute Lymphocyte Count 1.87 X10^3/uL (0.83-4.51); Absolute Neutrophil Count 5.3 X10^3/uL (2.0-7.7); Basophil# 0.07 X10^3/uL; Basophil% 0.8 % (0-1); Eosinophil# 0.35 X10^3/uL; Eosinophils% 4.1 % (0-5); Hematocrit 41.5 % (37-47); Hemoglobin 13.2 g/dL (12.0-15.0); Lymphocyte # 1.87 X10^3/ul (0.83-4.51); Mean Corp Hgb Conc 31.8 g/dL (32-36); Mean Corpuscular Hgb 30.6 pg (27.0-32.0); Mean Corpuscular Volume 96.1 fL (81-99); Mean Platelet Vol. 9.9 fl (6.2-12.0); Monocyte% 10.6 % (0-10); NRBC Flagged by Analyzer 0 % (0-5); Neutrophil # 5.25 X10^3/uL (2.7-7.7); Neutrophil % 61.9 % (47-70); Platelet Count 183 K/mm3 (150-450); Red Blood Count 4.32 M/mm3 (4.2-5.4); White Blood Count 8.5 K/mm3 (4.4-11.0)
[2024-09-30 12:41] LABS: Anion Gap 5 (5-15); BUN 26 mg/dL (7-18); BUN/Creat Ratio 38.9 RATIO (10-20); Chloride 107 mmol/L (98-107); Creatinine, Serum 0.67 mg/dL (0.55-1.02); EST Glomerular Filtration Rate 95 mL/min (>60); Est Glom Filt Rate - Afr Amer 115 mL/min (>60); Estimated Creatinine Clearance 67.97 ml/min; Glucose 96 mg/dL (74-106); Sodium Level 140 mmol/L (136-145)
[2024-09-30 12:42] LABS: Carbamazepine (Tegretol) 11.6 ug/mL (4.0-12.0); Valproic Acid (Depakene) Level 78 ug/mL (50-100)
--- NOTE | 2024-09-30 12:44 | EX.ED.GENINJ ---
HPI History of Present Illness Chief Complaint: Fall Detail of Chief Complaint: Patient had a fall 1 week ago was not assessed. Informant: patient and other Onset/Context/Timing Onset: Today (Somnolence with difficulty staying awake) Mechanism/Context: Blunt Injury and Fall (1 week ago struck forehead and face.) Location: Not applicable Current Severity: Mild Maximum Severity: Moderate Worsened by: Unknown Relieved by: Nothing Associated Symptoms Associated Symptoms: Positive for Loss of consciousness; Negative for Parasthesias, Weakness, Loss of function, Inability to ambulate or Amnesia Narrative Narrative: Patient is a 64-year-old woman with history of seizure disorder on Depakote, Keppra and Tegretol. She she has a history of neurofibromatosis. She was sent in because of decreased level of conscious. Last time she had this was due to intracranial bleed. She did not seek medical attention after fall 1 week ago. She did not have loss of conscious. She is not on antithrombotic or anticoagulant. Presently she denies headache, visual, ocular auditory symptoms. She denies chest pain or shortness of breath. She denies abdominal pain or nausea. She denies urologic symptoms. Prior similar symptoms: Yes Recent Illness/Hospitalization: No PFSH PFSH Medical History Non-smoker Seizures TIA (transient ischemic attack) Neurofibroma Seizure disorder Home Medications ?Medication ?Instructions ?Recorded ?Last Taken ?Type carbamazepine 200 mg tablet 200 mg PO 5X/DAY seizure 04/28/19 09/25/23 History clonazepam 1 mg tablet 1 mg PO QHS anxiety 04/28/19 09/24/23 History divalproex 500 mg tablet,delayed 1,000 mg PO BID seizure 04/28/19 09/25/23 History release (Depakote) levetiracetam 1,000 mg tablet 1,000 mg PO BID seizure 04/28/19 09/25/23 History (Keppra) Allergy/AdvReac Type Severity Reaction Status Date / Time No Known Allergies Allergy Verified 09/30/24 12:02 Social History household members: family Smoking Status: Never smoker substance use type: does not use ROS ROS ED Constitutional Constitutional ED: Denies chills, fever(s), subjective, sweats or weight loss Eyes Eyes: Denies blurry vision or change in vision ENT ENT ED: Denies ear pain, rhinorrhea or sore throat Cardiovascular Cardiovascular: Denies chest pain, palpitations or paroxysmal nocturnal dyspnea Respiratory/Chest Respiratory/Chest: Denies cough, dyspnea, dyspnea on exertion or paroxysmal nocturnal dyspnea Gastrointestinal Gastrointestinal: Denies abdominal pain, diarrhea, nausea or vomiting Genitourinary Genitourinary ED: Denies dysuria, hematuria or urinary frequency Musculoskeletal Musculoskeletal: Denies back pain or neck pain Integumentary Denies rash Neurologic Neurologic: Denies headache(s) or paresthesias Endocrine Endocrinology: Denies cold intolerance or heat intolerance Hematologic/Lymphatic Hematologic/Lymphatic: Denies easy bleeding or easy bruising EXAM Physical Exam Const Vital Signs: 09/30/24 11:57 09/30/24 12:21 Temperature 97.6 F L Temperature Source Oral Pulse Rate 73 Respiratory Rate 18 Respiratory Effort Normal Non-Labored Respiratory Depth Normal Respiratory Pattern Normal Blood Pressure 140/91 H Blood Pressure Mean 107 Pulse Ox 98 98 Oxygen Delivery Method Room Air Room Air Positive well nourished and well developed Constitutional Narrative: Vital signs noted. Blood pressure slightly elevated. General Appearance ED: well developed and NAD HEENT Reports TM's clear atraumatic; Negative for tenderness Nose: Negative for septum abnormal Tympanic Membrane ED: Yes TM's clear Eyes PERRL and EOMs intact bilaterally General Eye ED: Yes other Other Details: There is no nystagmus. There is no papilledema on funduscopic exam. Neck full ROM Neck Narrative: There is no carotid bruits. Trachea is midline. There is no pain to palpation. Chest Wall palpation of chest normal Resp normal respiratory effort and clear to auscultation bilaterally Cardio regular rhythm, S1 normal heart sound, S2 normal heart sound and no murmurs Rate: regular rate GI normal to inspection, nondistended, normoactive bowel sounds, non-tender, non-distended and no masses Auscultation: normoactive bowel sounds Palpation: soft Back/Spine normal to inspection and no thoracic nor lumbar tenderness Extremity normal to inspection and full ROM General Extremety ED: Negative for deformity, edema or tenderness General Extremity: Negative for deformity or edema Neuro oriented x3, CN's II-XII intact bilaterally and moves all extremities [place] Coma Scale: document GCS findings Spontaneous Obeys Commands Oriented 15 Plantar Reflex: Downgoing: bilateral Psych mental status grossly normal and thought process normal Skin No no rashes or lesions noted, no wounds, skin turgor normal and no jaundice Skin Narrative: Neurofibromatosis MDM MDM MDM Narrative Medical decision making narrative: With history of fall decreased level consciousness need to evaluate for intracranial bleed. Also need to evaluate for infectious and metabolic causes. For this reason CBC, electrolyte panel and UA was obtained as well as levels for valproic acid, carbamazepine and Keppra. Lab Data Attestation: I reviewed the patient's lab results. Lab results narrative: CBC is unremarkable. Electrolyte panel is unremarkable. Valproic acid level and carbamazepine level are therapeutic. Labs: Laboratory Results - last 24 hr 09/30/24 12:15 WBC 8.5 RBC 4.32 Hgb 13.2 Hct 41.5 MCV 96.1 MCH 30.6 MCHC 31.8 L RDW Std Deviation 54.0 H RDW Coeff of Amador 15.0 H Plt Count 183 MPV 9.9 Immature Gran % (Auto) 0.600 Neut % (Auto) 61.9 Lymph % (Auto) 22.0 Edmunds % (Auto) 10.6 H Eos % (Auto) 4.1 Baso % (Auto) 0.8 Absolute Neuts (auto) 5.3 Absolute Lymphs (auto) 1.87 Nucleated RBC % 0 Sodium 140 Potassium 4.0 Chloride 107 Carbon Dioxide 28.0 Anion Gap 5 BUN 26 H Creatinine 0.67 Estim Creat Clear Calc 67.97 Est GFR (MDRD) Af Amer 115 Est GFR (MDRD) Non-Af 95 BUN/Creatinine Ratio 38.9 H Glucose 96 Calcium 9.0 Valproic Acid 78 Carbamazepine 11.6 Radiography Diagnostic Testing: Clinical Impression(s) from Imaging Studies Brain CT 09/30/24 12:55 IMPRESSION: Essentially stable examination demonstrating small bilateral subacute on chronic subdural hematomas as described. Electronically Signed: Kirill Hager MD at 13:20 EDT , CT of the head reveals bilateral frontal hygromas with what appears to be a subacute subdural hematoma. There is no shift noted. Treatment and Re-Evaluation Narrative: Patient and family were made aware of the CAT scan results. They were informed that the radiologist did not read at this time. Since she has been treated for subdural hematomas in the past at [facility] the office secretary was asked to contact [facility] discussed case to see if patient requires transfer or outpatient follow-up. Spoke with nurse at transfer center at [facility]. She contacted Dr. Barnhart the trauma surgeon. He recommended I speak with the neurosurgeon Dr. Ramirez. Case was discussed with neurosurgeon. He did not feel she needed be transferred. She would not meet criteria for admission. She was discharged to home with appropriate home-going instructions and reasons to return. Critical Care Time Critical Care Time: Yes Critical care time (excluding procedures): 30-74 minutes (31), Including time spent: (History, physical, documentation, review of prior records, independent rotation of laboratory results and CT of the head), Discussing w/Patient &/or Family/[place] (Patient was made aware of initial findings, agreement by radiologist of CAT scan findings and discussion with specialist at [facility]), Discussing w/Consultants and Arranging Admission or Transfer Discharge Plan Triage Chief Complaint: Fall ED Provider: Jeff Khan Dx/Rx/DC Orders Clinical Impression: Subacute subdural hematoma, History of type 1 neurofibromatosis, Acute alteration in mental status, Hx of seizure disorder Instructions: What Is a Subdural Hematoma? Prescriptions: No Action clonazepam 1 MG tablet 1 mg PO QHS divalproex [Depakote] 500 MG tablet,delayed release (DR/EC) 1,000 mg PO BID carbamazepine 200 MG tablet 200 mg PO 5X/DAY levetiracetam [Keppra] 1,000 MG tablet 1,000 mg PO BID Primary Care Provider: Dmitry Wiley Referrals: Dmitry Wiley, [Primary Care Provider] - As Needed Activity Restrictions/Additional Instructions: If there is any change in her behavior, she complains of severe headache, complains that 1 side of her body feels differently or is acting inappropriately return to the emergency department Print Language: Liberian Disposition Disposition: Home, Self Care
--- NOTE | 2024-09-30 12:55 | CT_ITS ---
STUDY: CT BRAIN WITHOUT CONTRAST REASON FOR EXAM: Female, 64 years old. Altered mental status, history of ICB RADIATION DOSAGE (If Supplied By Facility): CTDIvol = ( 47.06 ) mGy, DLP = ( 890.33 ) mGycm TECHNIQUE: Transaxial CT imaging of the brain was performed without administration of intravenous contrast material. Individualized dose optimization techniques were used for this CT. COMPARISON: Comparison is made with prior study dated August 05, 2024. FINDINGS: Normal soft tissue structures. There is evidence of prior bilateral frontal craniotomy. Stable small subacute on chronic bilateral subdural hematomas overlying the right and left frontal parietal occipital lobes. No significant mass effect is seen. Moderate degree of cerebral atrophy. Normal basal ganglia and thalami. Normal brainstem. There is mild cerebellar atrophy. There is no intracranial hemorrhage. There are no findings of an acute ischemic infarction. Normal visualized paranasal sinuses. CT/Brain/Head without Contrast IMPRESSION: Essentially stable examination demonstrating small bilateral subacute on chronic subdural hematomas as described. Electronically Signed: Kirill Hager MD at 13:20 EDT ,
[2024-09-30 13:57] VITALS: BP 117/85; PULSE 78
[2024-09-30 13:59] VITALS: BP 117/85; PULSE 78; RESP 18; TEMP 36.1; O2SAT 98
[2024-10-03 16:10] LABS: KEPPRA (LEVETIRACETAM) 33.9 ug/mL (10.0-40.0)
== END 2024-09-30 14:08 | disposition home or self-care (01) ==
PROVIDERS: Emergency Provider Emergency Medicine; PCP Family Medicine; Visit Provider Emergency Medicine
DX: S06.5X0D Traumatic subdural hemorrhage without loss of consciousness, subsequent encounter (principal); G40.909 Epilepsy, unspecified, not intractable, without status epilepticus; Q85.00 Neurofibromatosis, unspecified; Z79.899 Other long term (current) drug therapy; R41.82 Altered mental status, unspecified; W19.XXXD Unspecified fall, subsequent encounter
CPT/HCPCS: 70450; 80048; 80156; 80164; 80177; 85025; 99284; A4216

== ENCOUNTER 2025-03-23 13:19 | Emergency (ER) | payer MEDICARE, MEDICAID, SELFPAY ==
[2025-03-23 13:19] VITALS: BP 129/59; PULSE 76; RESP 18; TEMP 36.3; O2SAT 98; BMI 20.5
[2025-03-23] MEDS: Acetaminophen 325 MG Tablet 650 MG PO (14:19)
--- NOTE | 2025-03-23 14:38 | CT_ITS ---
PROCEDURE: BRAIN/HEAD WITHOUT CONTRAST 03/23/2025 REASON FOR EXAM: HEADACHE, HX OF BLEED TECHNIQUE: Head CT without intravenous contrast. Coronal and Sagittal reconstruction series were provided. One or more dose reduction techniques were used (e.g., Automated exposure control, adjustment of the mA and/or kV according to patient size, use of iterative reconstruction technique. RADIATION DOSE SUMMARY: CTDlvol: 47.06 mGy DLP: 960.91 mGycm COMPARISON: Comparison is made with prior study dated 2023. FINDINGS: Brain: Low density in the periventricular white matter suggests mild chronic small vessel ischemic changes. CSF Spaces: Once again, there are small bilateral subacute subdural hematomas overlying the right frontal temporal parietal lobes as well as the left frontal lobe. There is evidence of prior david hole changes. Cerebellar atrophy. Sinuses/Mastoids: Clear at visualized levels Bones: Prior david holes. CT/Brain/Head without Contrast IMPRESSION: Subacute bilateral subdural hematomas right greater than left with no significa nt mass effect. Diffuse cerebral and cerebellar atrophy. Prior david holes. Reading Location: [place] [id number]
--- NOTE | 2025-03-23 15:40 | EDS_ITS ---
HPI History of Present Illness Chief Complaint: Headache Informant: patient and family Narrative Narrative: Patient is 64-year-old female with history of traumatic subdural hemorrhage, seizures and neurofibromatosis type I presenting for headache. She is with her brother and [id number] who are her family/primary caregivers. Patient's know she did not sleep well last night. At some point last night she developed a headache. She describes it as at the front of her head. She denies any associated photophobia or vision changes. No associated nausea or vomiting. No speech changes, numbness or tingling reported. At workshop today she was more sleepy but states that she did not sleep well last night. She is quite of a headache and with her history the family brought her in for further evaluation. No report of any recent falls. Patient states she did have 325 mg of Tylenol this morning with some help. Patient's [id number] states that there neurosurgeon said that if she ever has a headache again she should come to the ER for evaluation and not try to wait it out. [facility] Medical History Non-smoker Seizures TIA (transient ischemic attack) Neurofibroma Seizure disorder Home Medications ?Medication ?Instructions ?Recorded ?Last Taken ?Type carbamazepine 200 mg tablet 200 mg PO 5X/DAY seizure 0 04/28/19 09/25/23 History clonazepam 1 mg tablet 1 mg PO QHS anxiety 04/28/19 09/24/23 History divalproex 500 mg tablet,delayed 1,000 mg PO BID seizu re 04/28/19 09/25/23 History release (Depakote) levetiracetam 1,000 mg tablet 1,000 mg PO BID seizure 04/28/19 09/25/23 History (Keppra) Allergy/AdvReac Type Severity Reaction Status Date / Time No Known Allergies Allergy Verified 03/23/25 13:22 Social History household members: family housing: house Smoking Status: Never smoker substance use type: does not use ROS ROS ED Constitutional Constitutional ED: Denies chills or fever(s) Eyes Eyes: Denies blurry vision or change in vision ENT ENT ED: Denies sore throat Cardiovascular Cardiovascular: Denies chest pain Respiratory/Chest Respiratory/Chest: Denies cough Gastrointestinal Gastrointestinal: Denies nausea or vomiting Musculoskeletal Musculoskeletal: Denies back pain or neck pain Neurologic Neurologic: Reports headache(s); Denies paresthesias or weakness Hematologic/Lymphatic Hematologic/Lymphatic: Denies easy bleeding or easy bruising EXAM Physical Exam Const Vital Signs: 03/23/25 13:19 Temperature 97.3 F L Temperature Source Temporal Pulse Rate 76 Respiratory Rate 18 Blood Pressure 129/59 H Blood Pressure Mean 82 Pulse Ox 98 Oxygen Delivery Method Room Air Positive well nourished and well developed General Appearance ED: well developed and NAD HEENT Reports normocephalic, TM's clear and moist mucous membranes Tympanic Membrane ED: Yes TM's clear Eyes PERRL and EOMs intact bilaterally Neck supple General: Negative for tenderness Resp normal respiratory effort and clear to auscultation bilaterally Cardio regular rate and regular rhythm Extremity normal to inspection and full ROM General Extremety ED: Negative for tenderness Neuro oriented x3, CN's II-XII intact bilaterally and no sensory deficits noted Sensorium / Orientation: awake and alert Speech: speech normal Gait (Neuro): normal gait Motor Exam: strength 5/5 throughout; Negative for general weakness Psych mental status grossly normal Skin Skin Narrative: Chronic skin changes consistent with history of neurofibromatosis MDM MDM MDM Narrative Medical decision making narrative: Patient evaluated for headache. Has a history of traumatic subdural hemorrhage requiring intervention. Developed was also a gradual onset headache this morning. Family is unaware of any history of any aneurysm. Has mild relief with Tylenol. No acute trauma reported. Differential includes tension headache as well as acute on chronic subdural hemorrhage. Given that she does not describe a thunderclap headache low suspicion for subarachnoid hemorrhage. No fever or meningeal signs. Low suspicion for meningitis. Patient given 650 mg of Tylenol and CT of the brain is obtained. CT of the brain shows subacute bilateral subdural hematomas with no significant mass effect. No report of any acute changes. Patient has improvement of headache with Tylenol in the emergency room. With normal neurologic exam we discharged home with outpatient follow-up. Given return precaution. Patient and family verbalized agreement understand this plan. Radiography Diagnostic Testing: Clinical Impression(s) from Imaging Studies Brain CT 03/23/25 14:38 IMPRESSION: Subacute bilateral subdural hematomas right greater than left with no significan t mass effect. Diffuse cerebral and cerebellar atrophy. Prior david holes. Reading Location: [place] [id number] Discharge Plan Triage Chief Complaint: Headache ED Provider: Vivian Lveine Dx/Rx/DC Orders Clinical Impression: Hx of subdural hematoma, Headache Instructions: ED Headache, Tension Prescriptions: No Action clonazepam 1 MG tablet 1 mg PO QHS divalproex [Depakote] 500 MG tablet,delayed release (DR/EC) 1,000 mg PO BID carbamazepine 200 MG tablet 200 mg PO 5X/DAY levetiracetam [Keppra] 1,000 MG tablet 1,000 mg PO BID Primary Care Provider: Dmitry Wiley Referrals: Dmitry Wiley DO [Primary Care Provider] - Activity Restrictions/Additional Instructions: Take Tylenol every 6 hours frequencies up to 650 mg) as needed for headache. Okay to take melatonin at home before bed. If you develop any acute neurologic symptoms (vision changes, numbness, weakness or severe headache please return the emergency room). Your CT of the brain showed your chronic old blood but no other acute process or signs of acute bleeding. Print Language: Lithuanian Disposition Disposition: Home, Self Care
[2025-03-23 15:43] VITALS: BP 122/70; PULSE 71; RESP 13; O2SAT 97
[2025-03-23 15:44] VITALS: BP 122/70; PULSE 71; RESP 13; TEMP 36.4; O2SAT 97
== END 2025-03-23 15:44 | disposition home or self-care (01) ==
PROVIDERS: Emergency Provider Emergency Medicine; PCP Family Medicine; Visit Provider Emergency Medicine
DX: R51.9 Headache, unspecified (principal); Q85.01 Neurofibromatosis, type 1
CPT/HCPCS: 70450; 99282

== ENCOUNTER 2025-08-03 13:31 | Emergency (ER) | payer MEDICARE, MEDICAID, SELFPAY ==
[2025-08-03] VITALS (8 sets, daily range): BP systolic 137–161; BP diastolic 65–78; PULSE 63–72; RESP 13–17; TEMP 36.6–36.8; O2SAT 99–100
--- NOTE | 2025-08-03 14:48 | CT_ITS ---
PROCEDURE: BRAIN/HEAD WITHOUT CONTRAST 08/03/2025 REASON FOR EXAM: HX OF SUBDURAL TECHNIQUE: Procedure Code: CTBR Modality: CT Procedure: BRAIN/HEAD WITHOUT CONTRAST Coronal and Sagittal reconstruction series were provided. One or more dose reduction techniques were used (e.g., Automated exposure control, adjustment of the mA and/or kV according to patient size, use of iterative reconstruction technique. RADIATION DOSE SUMMARY: CTDlvol: 45 mGy DLP: 863 mGycm COMPARISON: 03/23/2025 FINDINGS: Bilateral frontal subdural hemorrhages are noted. These are intermediate to low-density without hyperdense blood. The extent is similar to the prior study. With underlying atrophy there is no midline shift. Prior bilateral craniotomies. CT/Brain/Head without Contrast IMPRESSION: Stable findings Reading Location: [place] [address]
--- NOTE | 2025-08-03 14:48 | EKG12_ITS ---
Test Reason : Blood Pressure : */* mmHG Vent. Rate : 68 BPM Atrial Rate : 68 BPM P-R Int : 162 ms QRS Dur : 90 ms QT Int : 424 ms P-R-T Axes : 46 -20 74 degrees QTcB Int : 450 ms Normal sinus rhythm T wave abnormality, consider anterior ischemia Abnormal ECG Confirmed by ALPA DUNLAP, ZAYRA ([id number]), rewrite editor COLTON ECHEVARRIA ([id number]) on 08/07/2025 9:05:29 AM Referred By: Confirmed By: ZAYRA YUEN MD
[2025-08-03 15:01] LABS: Hematocrit 37.0 % (37-47); Hemoglobin 12.2 g/dL (12.0-15.0); Immature Granulocytes Count 0.020 X10^3/uL (0.0-0.0); Mean Corp Hgb Conc 33.0 g/dL (32-36); Mean Corpuscular Volume 93.9 fL (81-99); Mean Platelet Vol. 10.1 fl (6.2-12.0); NRBC Flagged by Analyzer 0 % (0-5); Platelet Count 164 K/mm3 (150-450); RBC Distribution Width CV 14.7 % (11.6-14.6); RBC Distribution Width SD 51.6 fl (35.1-43.9); Red Blood Count 3.94 M/mm3 (4.2-5.4); White Blood Count 5.6 K/mm3 (4.4-11.0)
--- NOTE | 2025-08-03 15:11 | RAD_ITS ---
PROCEDURE: CHEST PA AND LATERAL 08/03/2025 REASON FOR EXAM: FATIGUE TECHNIQUE: Procedure Code: RADCXR Modality: DX Procedure: CHEST PA AND LATERAL COMPARISON: None. FINDINGS: LUNGS AND PLEURA: No focal airspace consolidation. Minimal coarsening of the interstitial lung markings. No pleural effusion or pneumothorax. HEART AND MEDIASTINUM: The heart size and mediastinal contours are normal. BONES: No acute osseous abnormality. RAD/Chest PA and Lateral IMPRESSION: NO ACUTE FINDINGS. Reading Location: [id number]
[2025-08-03 15:20] LABS: Anion Gap 13 (5-15); BUN 18 mg/dL (4-19); BUN/Creat Ratio 32.4 RATIO (10-20); Calcium,Total 8.7 mg/dL (7.6-11.0); Carbon Dioxide 23.7 mmol/L (21.0-32.0); Chloride 105 mmol/L (98-108); Estimated Creatinine Clearance 8.31 ml/min (50-250); Glucose 124 mg/dL (70-99); Potassium 3.5 mmol/L (3.3-5.1)
[2025-08-03 16:07] LABS: Mucous, Urine 0 SEEN /hpf (<or=2+)
[2025-08-03 16:09] LABS: Color, Urine Yellow (Yellow); Glucose, Dipstick Normal (Normal); Ketone-Dipstick 5 mg/dl (Negative); Leukocyte Esterase-Dipstick 25 /ul (Negative); Nitrite-Dipstick Negative (Negative); Occult Blood-Urine Negative /ul (Negative); Protein-Dipstick 15 mg/dl (Negative); Specific Gravity, Urine 1.020 (1.002-1.030); Urine Bilirubin Dipstick Negative (Negative)
[2025-08-03 16:24] LABS: Red Blood Cells-Urine 0-5 SEEN /hpf (0-5); Squamous Epithelial Cells - UA 0-5 SEEN /hpf (5-10)
[2025-08-03 16:25] LABS: Troponin T High Sensitivity < 6 ng/L (<=14)
--- NOTE | 2025-08-03 16:30 | EX.ED.DYSGE1 ---
HPI History of Present Illness Chief Complaint: Fatigue Narrative Narrative: Patient is a 65-year-old female presenting to the emergency department for increased fatigue and feeling unstable on her feet. Patient is brought in by her [id number]. Patient has a past medical history of type I neurofibromatosis, spontaneous subdural hematoma, frequent falls and lower extremity weakness. [id number] states that this has been going on for about the past week. States it was similar to when the patient had a spontaneous subdural hematoma in the past. Patient denies any headache, neck pain back pain. Denies numbness or weakness in her legs or arms. Denies visual changes or speech difficulty. Reports a fall about a week ago. [facility] Medical History Hemorrhagic stroke Non-smoker Seizures TIA (transient ischemic attack) Neurofibroma Seizure disorder Home Medications ?Medication ?Instructions ?Recorded ?Last Taken ?Type carbamazepine 200 mg tablet 200 mg PO 5X/DAY seizure 04/28/19 09/25/23 History clonazepam 1 mg tablet 1 mg PO QHS anxiety 04/28/19 09/24/23 History divalproex 500 mg tablet,delayed 1,000 mg PO BID seizure 04/28/19 09/25/23 History release (Depakote) levetiracetam 1,000 mg tablet 1,000 mg PO BID seizure 04/28/19 09/25/23 History (Keppra) Allergy/AdvReac Type Severity Reaction Status Date / Time No Known Allergies Allergy Verified 08/03/25 13:35 Surgical History H/O brain surgery Social History household members: family housing: house Smoking Status: Never smoker substance use type: does not use ROS ROS ED ROS Narrative See HPI EXAM Physical Exam Narrative Exam Narrative: Vital signs: Reviewed General: Alert and oriented x 3. No acute distress HEENT: Head is normocephalic and atraumatic, sinuses nontender, pupils equal round and reactive. Nares are patent. Oropharynx and throat exams normal. Neck: Supple without lymphadenopathy nontender Cardiovascular: Regular rate and rhythm, no murmurs. No rubs or gallops. Normal S1 and S2 Respiratory: Clear to auscultation bilaterally. No wheezes, rales, rhonchi Abdominal: Soft and nontender. Normal bowel sounds. No guarding or rebound. Nonsurgical abdomen Extremities: No tenderness. No bruising. Normal range of motion. Normal sensation. Skin: No rash or redness. Neurological: Cranial nerves II through XII are grossly intact. Normal strength and sensation. Normal cerebellar function The rest of the physical exam is unremarkable Const Vital Signs: 08/03/25 13:35 08/03/25 15:05 08/03/25 15:35 Temperature 98.3 F Temperature Source Oral Pulse Rate 72 67 Respiratory Rate 16 14 Respiratory Effort Normal Non-Labored Respiratory Pattern Normal Blood Pressure 140/65 H 137/78 H Blood Pressure Mean 90 97 Pulse Ox 100 99 Oxygen Delivery Method Room Air Room Air 08/03/25 16:06 08/03/25 16:15 08/03/25 16:30 Temperature Temperature Source Pulse Rate 67 64 67 Respiratory Rate 15 14 14 Respiratory Effort Respiratory Pattern Blood Pressure Blood Pressure Mean Pulse Ox 99 99 99 Oxygen Delivery Method 08/03/25 16:45 08/03/25 17:00 08/03/25 17:56 Temperature 98 F Temperature Source Pulse Rate 63 66 64 Respiratory Rate 13 15 17 Respiratory Effort Respiratory Pattern Blood Pressure 161/76 H 156/67 H Blood Pressure Mean 99 96 Pulse Ox 99 99 99 Oxygen Delivery Method NIHSS NIHSS Initial: 1a Level of Consciousness: 0 1b LOC Questions (Score 2 if aphasic/stupor): 0 1c LOC Commands (Only score 1st attempt): 0 2 Best Gaze (If aphasic, use reflexive mvmts.): 0 3 Visual: 0 4 Facial Palsy: 0 5 Motor Arm Right (UN = amputation/fusion): 0 5 Motor Arm Left: 0 6 Motor Leg Right: 0 6 Motor Leg Left: 0 7 Limb ataxia (Only + if out of proportion): 0 8 Sensory (Aphasia/stupor=0 or 1, coma=2): 0 9 Best Language: 0 10 Dysarthria (mute, coma=2, intubated=UN): 0 11 Extinction and Inattention (only scored if +): 0 Total Score: 0 MDM MDM MDM Narrative Medical decision making narrative: Patient is a 65-year-old female presenting to the emergency department for increased fatigue and unstable on her feet. Patient resting in bed comfortably no acute distress. Vitals are stable. NIH of 0. No ataxia on exam. No abnormal gait on ambulation. No dizziness. Low suspicion for a posterior stroke. Given the patient's history of spontaneous subdurals, CT of the brain was ordered. Infectious workup was also started with a chest x-ray and urinalysis. CBC with no leukocytosis and a normal hemoglobin. BMP with no significant abnormality. Troponin within normal limits. Urinalysis with no evidence of UTI. Chest x-ray shows no acute radiographic findings. CT brain with stable findings, no acute intracranial bleeding. Chest x-ray reviewed, no acute finding seen on my review. Radiology read with no acute findings. Patient ambulated to the bathroom without difficulty with no assistance. Updated patient and [id number] on negative workup. Recommended follow-up with her neurologist and primary care soon as possible. They are agreeable with the plan. Patient discharged from the Emergency Department. I do not feel that the patient's evaluation reveals any acute reason for admission at this time. I instructed them to either follow-up with their primary care physician or promptly return to the Emergency Department for reevaluation should symptoms worsen or new symptoms develop. I explained what symptoms would indicate the need to return to the emergency department. Shared decision making was used. The patient voiced understanding of the treatment plan and is agreeable with it. Clinical impression Fatigue History & Record Review Discussion w/independent historian: Patient and Family Additional record(s) reviewed:: Prior ED visit Lab Data Attestation: I reviewed the patient's lab results. Labs: Laboratory Results - last 24 hr 08/03/25 08/03/25 08/03/25 14:03 16:00 16:13 WBC 5.6 RBC 3.94 L Hgb 12.2 Hct 37.0 MCV 93.9 MCH 31.0 MCHC 33.0 RDW Std Deviation 51.6 H RDW Coeff of [place] 14.7 H Plt Count 164 MPV 10.1 Immature Gran % (Auto) 0.400 Neut % (Auto) 51.0 Lymph % (Auto) 26.5 [place] % (Auto) 15.1 H Eos % (Auto) 6.5 H Baso % (Auto) 0.5 Absolute Neuts (auto) 2.9 Absolute Lymphs (auto) 1.48 Nucleated RBC % 0 Sodium 142 Potassium 3.5 Chloride 105 Carbon Dioxide 23.7 Anion Gap 13 BUN 18 Creatinine 0.55 L Estim Creat Clear Calc 8.31 L* Est GFR (MDRD) Non-Af 102 BUN/Creatinine Ratio 32.4 H Glucose 124 H Calcium 8.7 Troponin T High Sens < 6 Troponin T Hi Sens 2 Hr < 6 Urine Color Yellow Urine Clarity Sl. Cloudy Urine pH 6.0 Ur Specific [place] 1.020 Urine Protein 15 H Urine Glucose (UA) Normal Urine Ketones 5 H Urine Occult Blood Negative Urine Nitrite Negative Urine Bilirubin Negative Urine Urobilinogen 1 H Ur Leukocyte Esterase 25 H Urine RBC 0-5 SEEN Urine WBC 0-5 SEEN Ur Squamous Epith Cells 0-5 SEEN Urine Bacteria RARE Urine Mucus 0 SEEN Radiography Chest X-Ray - ED: 2 View, Read by ED Physician, Normal, No Acute Disease and No Infiltrates Diagnostic Testing: Clinical Impression(s) from Imaging Studies Brain CT 08/03/25 14:48 IMPRESSION: Stable findings Reading Location: [id number] Chest X-Ray 08/03/25 15:11 IMPRESSION: NO ACUTE FINDINGS. Reading Location: [id number] Discharge Plan Triage Chief Complaint: Fatigue ED Provider: Sue Hayes Dx/Rx/DC Orders Clinical Impression: Fatigue Instructions: ED Weakness Uncertain Cause Prescriptions: No Action clonazepam 1 MG tablet 1 mg PO QHS divalproex [Depakote] 500 MG tablet,delayed release (DR/EC) 1,000 mg PO BID carbamazepine 200 MG tablet 200 mg PO 5X/DAY levetiracetam [Keppra] 1,000 MG tablet 1,000 mg PO BID Primary Care Provider: Dmitry Wiley Referrals: Dmitry Wiley DO [Primary Care Provider] - 2 Days Activity Restrictions/Additional Instructions: Your evaluation in the Emergency Department did not reveal any acute reason for admission. However, I want to emphasize that you may be early in the course of a disease process or illness even if it is not present. For this reason you should follow-up within 24 hours for reevaluation with either your primary care physician or if necessary back here in the Emergency Department. You should return to the Emergency Department immediately if your symptoms worsen or new symptoms develop. Print Language: Belarusian Disposition Disposition: Home, Self Care Discharge Date/Time: 08/03/25 17:56
[2025-08-03 16:53] LABS: Troponin T High Sens 2 HR < 6 ng/L (<=14)
== END 2025-08-03 17:56 | disposition home or self-care (01) ==
PROVIDERS: Emergency Provider Student in an Organized Health Care Education/Training Program; PCP Family Medicine; Visit Provider Student in an Organized Health Care Education/Training Program
DX: R26.81 Unsteadiness on feet (principal); Q85.01 Neurofibromatosis, type 1; R53.83 Other fatigue; R29.700 NIHSS score 0
CPT/HCPCS: 70450; 71046; 80048; 81001; 84484; 85025; 87631; 93005; 99284; A4216